=== PATIENT | female | born 1965 | race Caucasian/White ===

== ENCOUNTER 2017-02-18 00:41 | Inpatient (IN) | payer OTHER, MEDICARE ==
[2017-02-18] VITALS (12 sets, daily range): BP systolic 130–203; BP diastolic 67–112; PULSE 70–106; RESP 18–26; TEMP 97.8–99.2; O2SAT 93–99
[~2017-02-18] VITALS: Ht 157.5 cm; Wt 84.3 kg
[~2017-02-18 00:41] MED LIST: 1-ME1LIQ PO; LISI10TA PO; OMPR20CCR PO; PERM5CRE TOP; STRO3TAB PO
[2017-02-18] MEDS ORDERED: LISI-515 PO ×2 (01:02)
[2017-02-18] MEDS ORDERED: AMLO10TA2 PO (01:04)
[2017-02-18] MEDS ORDERED: PRIL20TA2 (01:05)
[2017-02-18] MEDS ORDERED: PRED20 PO (01:06)
[2017-02-18] MEDS ORDERED: ALBUAER3 INH (01:07)
[2017-02-18] MEDS ORDERED: SODIUM CHLORIDE 0.9% FLUSH 10 ML FLUSH IVF PRN (01:15)
[2017-02-18] MEDS ORDERED: methylPREDNISolone SOD SUCC 125 MG/2 ML VIAL IV PUSH ONE (01:15)
--- NOTE | 2017-02-18 01:15 | PD ---
HPI Chief Complaint: Respiratory Symptoms Time Seen by Provider: 00:59 Travel History International Travel<30 days: No Contact w/Intl Traveler<30days: No Traveled to known affect area: No History of Present Illness HPI The patient is a 51-year-old female who presents to the emergency department for shortness of breath. The patient states her symptoms started several weeks ago when she developed postnasal drip and facial congestion. The patient was diagnosed with a sinus infection and placed on prednisone and an antibiotic where she took 2 pills the first day and then one pill for the next 4 days. The patient states her symptoms improved. She then flew to [place], which she return and she developed shortness of breath and cough. The patient describes her cough is dry and nonproductive. She does complain of shortness of breath that is worse with exertion as well as mild chest tightness and wheezing. The patient saw her primary physician once again several days ago was placed on a steroid pack and another antibiotic as well as an inhaler. The patient also received a breathing treatment in the physician's office. However , patient states her symptoms are progressing and the antibiotic, steroids, and inhaler are not improving her symptoms. She does have a history tobacco use, last cigarette was several hours prior to arrival. However, she does state she has been smoking less secondary to her current symptoms. She is unsure if she has a history of COPD, denies any history of pulmonary embolism or DVT. She denies any history of [place] or congestive heart failure. Symptoms are moderate, there are no current alleviating or exacerbating factors. PFSH Past Medical History Blood Disorders: Yes (HEP C) Anxiety: Yes Heart Rhythm Problems: No Cancer: Yes (CERVICAL) Cardiovascular Problems: Yes High Cholesterol: No Chemotherapy: No Chest Pain: No Congestive Heart Failure: No Cirrhosis: Yes COPD: Yes Diabetes: No Diminished Hearing: No Endocrine: No Gastrointestinal Disorders: Yes GERD: Yes Glaucoma: No Genitourinary: Yes (KIDNEY STONES) Hepatitis: Yes (HEP C) Hiatal Hernia: No Hypertension: Yes Immune Disorder: No Kidney Stones: Yes Medical other: Yes (HX ESOPHAGEAL STRICTURE) Musculoskeletal: No Neurologic: No Reproductive: No Respiratory: Yes (COPD) Myocardial Infarction: No Radiation Therapy: No Thyroid Disease: No Ulcer: No Tetanus Vaccination: < 5 Years Influenza Vaccination: No ?: Not Menopausal: Yes : 3 Para: 3 Past Surgical History Abdominal Surgery: Yes (APPENDECTOMY AGE 14) AICD: No Appendectomy: Yes (AGE 14) Arteriovenous Shunt: No Cardiac Surgery: No Cholecystectomy: No Ear Surgery: No Endocrine Surgery: No Eye Surgery: No Genitourinary Surgery: No Gynecologic Surgery: Yes (HYSTERECTOMY (AGE 23 )) Hysterectomy: Yes Insulin Pump: No Joint Replacement: No Neurologic Surgery: No Oral Surgery: Yes (TONSILS SURGERY) Pacemaker: No Thoracic Surgery: Yes (BREAST) Tonsillectomy: Yes Other Surgery: Yes ( LEFT LUMPECTOMY CYST 2007;LIVER BIOPSY;COLONOSCOPY WITH POYLP REMOVAL) Social History Alcohol Use: No Tobacco Use: Yes (1-2 CIGS DAILY) Substance Use: No (HISTORY HEROIN ABUSE; RECOVERING FOR 15 YEARS) Allergies-Medications (Allergen,Severity, Reaction): Coded Allergies: alprazolam (Unverified Allergy, Severe, PT STATES RECOVERING ADDICT, ) azithromycin (Unverified Allergy, Severe, Hypertension,Rash, 10/13/16) clonazepam (Unverified Allergy, Severe, PT STATES RECOVERING ADDICT, ) clorazepate dipotassium (Unverified Allergy, Severe, PT STATES RECOVERING ADDICT, 10/13/16) diazepam (Unverified Allergy, Severe, PT STATES RECOVERING ADDICT, 10/13/16 ) lorazepam (Unverified Allergy, Severe, PT STATES RECOVERING ADDICT, ) midazolam (Unverified Allergy, Severe, PT STATES RECOVERING ADDICT, ) oxazepam (Unverified Allergy, Severe, PT STATES RECOVERING ADDICT, 10/13/16 ) temazepam (Unverified Allergy, Severe, PT STATES RECOVERING ADDICT, ) Uncoded Allergies: NARCOTIC (Allergy, Intermediate, PT STATES 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, 06/01/11 ) Reported Meds & Prescriptions Reported Meds & Active Scripts Active Reported Proair Hfa 8.5 GM Inh (Albuterol Sulfate) 90 Mcg/Act Aer 2 Puff INH Q4-6H PRN 108 mcg/actuation Prednisone 20 Mg Tab 20 Mg PO DIRECTED 7 Days Take 60 MG daily x 4 days, then 40 MG x 4 days, then 20 MG daily x 4 days. Prilosec (Omeprazole Magnesium) 20 Mg Tab Amlodipine (Amlodipine Besylate) 10 Mg Tab 10 Mg PO DAILY Lisinopril 20 Mg Tab 20 Mg PO BID Review of Systems Except as stated in HPI: all other systems reviewed are Neg General / Constitutional: No: Fever HENT: Positive: Congestion, No: Lightheadedness Cardiovascular: Positive: Dyspnea on exertion, No: Chest Pain or Discomfort Respiratory: Positive: Cough, Shortness of Breath, Wheezing Gastrointestinal: Positive: Diarrhea (occasionally with coughing), No: Nausea, Vomiting, Abdominal Pain Genitourinary: No: Dysuria Musculoskeletal: No: Edema Physical Exam Narrative GENERAL: Awake, alert, pleasant 51-year-old female appears her stated age and appears be slightly anxious and mildly short of breath. SKIN: Focused skin assessment warm/dry. HEAD: Atraumatic. Normocephalic. EYES: Pupils equal and round. No scleral icterus. No injection or drainage. ENT: No nasal bleeding or discharge. Mucous membranes pink and moist. NECK: Trachea midline. No JVD. CARDIOVASCULAR: Regular rate and rhythm. No murmur appreciated. Heart rate in the 90s. RESPIRATORY: No accessory muscle use. Type breath sounds with prolonged expiratory phase and scattered wheezes. GASTROINTESTINAL: Abdomen soft, non-tender, nondistended. MUSCULOSKELETAL: No obvious deformities. No clubbing. No cyanosis. No edema. NEUROLOGICAL: Awake and alert. No obvious cranial nerve deficits. Motor grossly within normal limits. Normal speech. PSYCHIATRIC: Appropriate mood and affect; insight and judgment normal. Data Data Last Documented VS Vital Signs Date Time Temp Pulse Resp B/P (MAP) Pulse Ox O2 Delivery O2 Flow Rate FiO2 02/18/17 01:27 92 22 174/67 (102) 98 Nasal Cannula 2.00 02/18/17 00:45 99.2 Orders Orders Complete Blood Count With Diff (02/18/17 01:10) Comprehensive Metabolic Panel (02/18/17 01:10) B-Type Natriuretic Peptide (02/18/17 01:10) Act Partial Throm Time (Ptt) (02/18/17 01:10) Prothrombin Time / Inr (Pt) (02/18/17 01:10) Magnesium (Mg) (02/18/17 01:10) Ckmb (Isoenzyme) Profile (02/18/17 01:10) Troponin I (02/18/17 01:10) Iv Access Insert/Monitor (02/18/17 01:10) Electrocardiogram (02/18/17 01:10) Ecg Monitoring (02/18/17 01:10) Oximetry (02/18/17 01:10) Oxygen Administration (02/18/17 01:10) Chest, Single Ap (02/18/17 01:10) Ct Pulmonary Angiogram (02/18/17 01:10) Sodium Chloride 0.9% Flush (Ns Flush) (02/18/17 01:15) Methylprednisolone So Succ Inj (Solumedr (02/18/17 01:15) Albuterol-Ipratropium Neb (Duoneb Neb) (02/18/17 01:15) Hydroxyzine Pamoate (Vistaril) (02/18/17 02:00) CKMB (02/18/17 01:20) CKMB% (02/18/17 01:20) Iohexol 350 Inj (Omnipaque 350 Inj) (02/18/17 02:23) Levofloxacin 500 Mg Premix Inj (Levaquin (02/18/17 03:30) Admit Order (Ed Use Only) (02/18/17 03:32) Labs Laboratory Tests Test 02/18/17 01:20 White Blood Count 3.9 TH/MM3 Red Blood Count 4.98 MIL/MM3 Hemoglobin 14.0 GM/DL Hematocrit 42.0 % Mean Corpuscular Volume 84.2 FL Mean Corpuscular Hemoglobin 28.1 PG Mean Corpuscular Hemoglobin Concent 33.4 % Red Cell Distribution Width 14.5 % Platelet Count 74 TH/MM3 Mean Platelet Volume 8.1 FL Neutrophils (%) (Auto) 63.2 % Lymphocytes (%) (Auto) 30.6 % Monocytes (%) (Auto) 5.8 % Eosinophils (%) (Auto) 0.2 % Basophils (%) (Auto) 0.2 % Neutrophils # (Auto) 2.5 TH/MM3 Lymphocytes # (Auto) 1.2 TH/MM3 Monocytes # (Auto) 0.2 TH/MM3 Eosinophils # (Auto) 0.0 TH/MM3 Basophils # (Auto) 0.0 TH/MM3 CBC Comment AUTO DIFF Differential Comment AUTO DIFF CONFIRMED Platelet Estimate NORMAL Platelet Morphology Comment NORMAL Red Cell Morphology Comment NORMAL Prothrombin Time 10.5 SEC Prothromb Time International Ratio 1.0 RATIO Activated Partial Thromboplast Time 24.1 SEC Blood Urea Nitrogen 16 MG/DL Creatinine 0.66 MG/DL Random Glucose 116 MG/DL Total Protein 8.1 GM/DL Albumin 4.1 GM/DL Calcium Level 8.7 MG/DL Magnesium Level 2.0 MG/DL Alkaline Phosphatase 74 U/L Aspartate Amino Transf (AST/SGOT) 11 U/L Alanine Aminotransferase (ALT/SGPT) 27 U/L Total Bilirubin 0.3 MG/DL Sodium Level 141 MEQ/L Potassium Level 3.8 MEQ/L Chloride Level 107 MEQ/L Carbon Dioxide Level 28.1 MEQ/L Anion Gap 6 MEQ/L Estimat Glomerular Filtration Rate 94 ML/MIN Total Creatine Kinase 101 U/L Creatine Kinase MB 3.6 NG/ML Troponin I LESS THAN 0.02 NG/ML B-Type Natriuretic Peptide 25 PG/ML MDM Medical Decision Making Medical Screen Exam Complete: Yes Emergency Medical Condition: Yes Medical Record Reviewed: Yes Interpretation(s) EKG reveals sinus rhythm with sinus arrhythmia. No ischemic changes noted. Laboratory Tests Test 02/18/17 01:20 White Blood Count 3.9 TH/MM3 Red Blood Count 4.98 MIL/MM3 Hemoglobin 14.0 GM/DL Hematocrit 42.0 % Mean Corpuscular Volume 84.2 FL Mean Corpuscular Hemoglobin 28.1 PG Mean Corpuscular Hemoglobin Concent 33.4 % Red Cell Distribution Width 14.5 % Platelet Count 74 TH/MM3 Mean Platelet Volume 8.1 FL Neutrophils (%) (Auto) 63.2 % Lymphocytes (%) (Auto) 30.6 % Monocytes (%) (Auto) 5.8 % Eosinophils (%) (Auto) 0.2 % Basophils (%) (Auto) 0.2 % Neutrophils # (Auto) 2.5 TH/MM3 Lymphocytes # (Auto) 1.2 TH/MM3 Monocytes # (Auto) 0.2 TH/MM3 Eosinophils # (Auto) 0.0 TH/MM3 Basophils # (Auto) 0.0 TH/MM3 CBC Comment AUTO DIFF Differential Comment AUTO DIFF CONFIRMED Platelet Estimate NORMAL Platelet Morphology Comment NORMAL Red Cell Morphology Comment NORMAL Prothrombin Time 10.5 SEC Prothromb Time International Ratio 1.0 RATIO Activated Partial Thromboplast Time 24.1 SEC Blood Urea Nitrogen 16 MG/DL Creatinine 0.66 MG/DL Random Glucose 116 MG/DL Total Protein 8.1 GM/DL Albumin 4.1 GM/DL Calcium Level 8.7 MG/DL Magnesium Level 2.0 MG/DL Alkaline Phosphatase 74 U/L Aspartate Amino Transf (AST/SGOT) 11 U/L Alanine Aminotransferase (ALT/SGPT) 27 U/L Total Bilirubin 0.3 MG/DL Sodium Level 141 MEQ/L Potassium Level 3.8 MEQ/L Chloride Level 107 MEQ/L Carbon Dioxide Level 28.1 MEQ/L Anion Gap 6 MEQ/L Estimat Glomerular Filtration Rate 94 ML/MIN Total Creatine Kinase 101 U/L Creatine Kinase MB 3.6 NG/ML Troponin I LESS THAN 0.02 NG/ML B-Type Natriuretic Peptide 25 PG/ML CT pulmonary angiogram reveals patchy areas of consolidation or atelectasis in the left upper lobe and right lower lobe. No pulmonary embolism. Differential Diagnosis Differential diagnosis includes COPD exacerbation, bronchitis, pneumonia, congestive heart failure, cardiomyopathy, pleural effusion, URI, pulmonary embolism. Narrative Course IV was established, labs are drawn and sent, and the patient was placed on cardiac telemetry monitoring and continuous pulse oximetry monitoring. Chest x- ray was obtained. The patient was administered Solu-Medrol 125 mg intravenously and [address] pulmonary angiogram was ordered to rule out PE was recent travel and wheezing that is not responding to steroids and albuterol inhaler. Troponin was less than 0.02. BNP was 25. Chest x-ray was clear. The patient requested Vistaril for her anxiety, has a history of allergies to benzodiazepines, therefore, was administered Vistaril 50 mg orally. The patient's CT pulmonary angiogram reveals patchy areas of consolidation or atelectasis in the left upper lobe and right lower lobe. No pulmonary embolus. The patient was reevaluated at 3:20 AM. The patient feels slightly improved, however, still short of breath. The patient appears to have bronchitis/COPD exacerbation with underlying pneumonia and has failed outpatient therapy with steroids, albuterol inhaler, and antibiotics. 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 The patient will be admitted. The on- call medical team was paged for admission. Physician Communication Physician Communication The on-call medical team was paged for admission. I discussed the patient with Dr. Crowder who agrees with admission. Diagnosis Primary Impression: COPD exacerbation Additional Impression: Pneumonia Qualified Codes: J18.9 - Pneumonia, unspecified organism Admitting Information Admitting Physician Requests: Admit Condition: Stable Nicola Melo MD Feb 18, 2017 01:15
[2017-02-18] MEDS: RESP: ALBUTEROL 2.5 MG/IPRATROPIUM 0.5 MG NEB (SCH) INH ×2 (01:18→19:35)
[2017-02-18 01:32] LABS: AUTOMATED NEUTROPHIL # 2.5 TH/MM3 (1.8-7.7); BASOPHIL % 0.2 % (0.0-2.0); EOSINOPHIL % 0.2 % (0.0-4.0); LYMPH % 30.6 % (9.0-44.0); LYMPHOCYTE # 1.2 TH/MM3 (1.0-4.8); MEAN CELL VOLUME 84.2 FL (80.0-100.0); MEAN CORPUSCULAR HEMOGLOBIN 28.1 PG (27.0-34.0); MEAN CORPUSCULAR HGB CONC 33.4 % (32.0-36.0); MONO % 5.8 % (0.0-8.0); NEUT % 63.2 % (16.0-70.0); PLATELET COUNT 74 TH/MM3 (150-450); RED BLOOD COUNT 4.98 MIL/MM3 (4.00-5.30); RED CELL DISTRIBUTION WIDTH 14.5 % (11.6-17.2); WHITE BLOOD COUNT 3.9 TH/MM3 (4.0-11.0)
[2017-02-18 01:34] LABS: HEMO FLAGS AUTO DIFF
[2017-02-18 01:43] LABS: APTT (PATIENT) 24.1 SEC (24.3-30.1); PROTHROMBIN TIME - PATIENT 10.5 SEC (9.8-11.6)
[2017-02-18 01:54] LABS: ALT (GPT) 27 U/L (10-53); ANION GAP 6 MEQ/L (5-15); AST (GOT) 11 U/L (15-37); BICARBONATE 28.1 MEQ/L (21.0-32.0); BLOOD UREA NITROGEN 16 MG/DL (7-18); CHLORIDE 107 MEQ/L (98-107); GLOMERULAR FILTRATION RATE 94 ML/MIN (>89); POTASSIUM 3.8 MEQ/L (3.5-5.1); SODIUM (NA) 141 MEQ/L (136-145)
[2017-02-18 01:59] LABS: ALKALINE PHOSPHATASE 74 U/L (45-117); CREATINE KINASE 101 U/L (26-192); TOTAL BILIRUBIN ADULT 0.3 MG/DL (0.2-1.0)
[2017-02-18 02:00] LABS: PLATELET ESTIMATE SMEAR NORMAL (NORMAL)
[2017-02-18 02:01] LABS: PLATELET MORPHOLOGY NORMAL (NORMAL); SCAN/DIFF AUTO DIFF CONFIRMED
--- NOTE | 2017-02-18 02:01 | RADRPT ---
EXAM DATE/TIME: 02/18/2017 01:38 [facility] COMPARISON: CHEST SINGLE AP, January 20, 2010, 20:00. INDICATIONS : Shortness of breath. MEDICAL HISTORY : Chronic obstructive pulmonary disease. Hypertension SURGICAL HISTORY : None. ENCOUNTER: Initial ACUITY: 1 day PAIN SCORE: 0/10 LOCATION: Bilateral chest FINDINGS: A single view of the chest demonstrates the lungs to be symmetrically aerated without evidence of mas s, infiltrate or effusion. The cardiomediastinal contours are unremarkable. There are old healed rig ht rib fractures. CONCLUSION: No acute disease. Luis Vogel MD on February 18, 2017 at 1:59 Board Certified Radiologist. This report was verified electronically.
[2017-02-18 02:11] LABS: CKMB 3.6 NG/ML (0.5-3.6)
[2017-02-18] MEDS ORDERED: IOHEXOL 350 MG/ML 10 ML VIAL (for RAD DIAG) IVCONTRAST ONE (02:23)
--- NOTE | 2017-02-18 03:14 | RADRPT ---
EXAM DATE/TIME: 02/18/2017 02:09 [facility] COMPARISON: No previous studies available for comparison. INDICATIONS : Shortness of breath with cough. IV CONTRAST: 75 cc Omnipaque 350 (iohexol) IV RADIATION DOSE: 15.90 CTDIvol (mGy) MEDICAL HISTORY : Chronic obstructive pulmonary disease. Hepatitis C. Cervical cancer. SURGICAL HISTORY : Hysterectomy. ENCOUNTER: Initial ACUITY: 3 days PAIN SCALE: 0/10 LOCATION: chest TECHNIQUE: Volumetric scanning of the chest was performed using a pulmonary embolism protocol MIP images were re constructed. Using automated exposure control and adjustment of the mA and/or kV according to patien t size, radiation dose was kept as low as reasonably achievable to obtain optimal diagnostic quality images. DICOM format image data is available electronically for review and comparison. Follow-up recommendations for detected pulmonary nodules are based at a minimum on nodule size and pa tient risk factors according to Fleischner Society Guidelines. FINDINGS: PULMONARY ARTERIES: No filling defects are seen in the pulmonary arteries through the segmental level. LUNGS: There is patchy consolidation or atelectasis in the anterior medial left upper lobe and several small areas in the posterior medial right lower lobe. PLEURAE: There is no pleural thickening or pleural effusion. MEDIASTINUM: There is good visualization of the great vessels of the middle mediastinum. No evidence of mediastin al or hilar adenopathy/mass. Coronary artery calcifications are present. MUSCULOSKELETAL: Within normal limits for patient age. MISCELLANEOUS: The visualized upper abdominal organs demonstrate no acute abnormality. CONCLUSION: 1. Patchy areas of consolidation or atelectasis in the left upper lobe and right lower lobe. 2. No pulmonary embolus. Luis Vogel MD on February 18, 2017 at 3:11 Board Certified Radiologist. This report was verified electronically.
[2017-02-18] MEDS ORDERED: LEVOFLOXACIN 500 MG PREMIX INJ 100 ML IV ONE (03:30)
[2017-02-18] MEDS ORDERED: RESP: ALBUTEROL 2.5 MG/IPRATROPIUM 0.5 MG NEB (PRN) INH (03:45)
[2017-02-18] MEDS ORDERED: SODIUM CHLORIDE 0.9% FLUSH 10 ML FLUSH IV FLUSH PRN (03:45)
[2017-02-18] MEDS ORDERED: RESP: ALBUTEROL 2.5 MG/IPRATROPIUM 0.5 MG NEB (SCH) INH (04:00)
[2017-02-18] MEDS: ENOXAPARIN SODIUM 40 MG/0.4 ML SYRINGE SQ SCH (04:32)
[2017-02-18] MEDS: PANTOPRAZOLE SOD 40 MG DELAYED RELEASE TAB PO SCH (08:05)
[2017-02-18] MEDS: methylPREDNISolone SOD SUCC 125 MG/2 ML VIAL IV PUSH SCH ×3 (08:05→22:39)
[2017-02-18] MEDS: LISINOPRIL 20 MG TAB PO SCH ×2 (08:05→22:37)
[2017-02-18] MEDS: SODIUM CHLORIDE 0.9% FLUSH 10 ML FLUSH IV FLUSH SCH ×2 (08:06→22:38)
--- NOTE | 2017-02-18 10:33 | HHI.HP ---
[facility] Primary Care Physician Maryan Acuna MD Admission Diagnosis bilateral pneumonia, COPD exacerbation fell outpatient therapy Diagnoses: Chief Complaint: Shortness of breath Travel History International Travel<30 Days: No Contact w/Intl Traveler <30 Da: No Traveled to Known Affected Are: No History of Present Illness The patient is a 51-year-old female with past medical history of likely undiagnosed COPD who is presenting to the hospital with shortness of breath. The patient states that he about 2 weeks ago she started to develop a head cold. She went to her primary who prescribed her Z-Eric and prednisone. She completed the Z-Eric but discontinued the prednisone after a couple doses secondary to side effects. She said she was using her pro-air. She started to feel a little bit better and she went to [place] for a vacation. She tolerated the trip well but she started to get sick again upon her return. She complained of chest congestion. She went back to her primary care doctor who prescribed more prednisone and antibiotics. The patient requested a nebulizer which was provided for her. The patient says she has had a low-grade fever. She says that her [id number] suddenly and she went to her last night and people told her that she was burning up. The patient has been taking Tylenol regularly recently. She endorses a dry cough. She has not been sleeping well. She has been tolerating a diet. She continues to smoke cigarettes. Review of Systems Except as stated in HPI: all other systems reviewed are Neg Past Family Social History Past Medical History HCV s/p treatment Leukopenia Thrombocytopenia Undiagnosed COPD Diverticulitis Past Surgical History Appendectomy Tonsillectomy Allergies: Coded Allergies: alprazolam (Unverified Allergy, Severe, PT STATES RECOVERING ADDICT, ) azithromycin (Unverified Allergy, Severe, Hypertension,Rash, 10/13/16) clonazepam (Unverified Allergy, Severe, PT STATES RECOVERING ADDICT, ) clorazepate dipotassium (Unverified Allergy, Severe, PT STATES RECOVERING ADDICT, 10/13/16) diazepam (Unverified Allergy, Severe, PT STATES RECOVERING ADDICT, 10/13/16 ) lorazepam (Unverified Allergy, Severe, PT STATES RECOVERING ADDICT, ) midazolam (Unverified Allergy, Severe, PT STATES RECOVERING ADDICT, ) oxazepam (Unverified Allergy, Severe, PT STATES RECOVERING ADDICT, 10/13/16 ) temazepam (Unverified Allergy, Severe, PT STATES RECOVERING ADDICT, ) Uncoded Allergies: NARCOTIC (Allergy, Intermediate, PT STATES 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, 06/01/11 ) Active Ordered Medications Current Medications Medications (Trade) Dose Ordered Sig/Cayden Route Start Time Stop Time Status Last Admin (NS Flush) 2 ml BID IV FLUSH 02/18/17 09:00 02/18/17 08:06 (NS Flush) 2 ml UNSCH PRN IV FLUSH 02/18/17 03:45 (Duoneb Neb) 1 ampule Q4HR NEB PRN INH 02/18/17 03:45 (Duoneb Neb) 1 ampule Q6HR NEB INH 02/18/17 04:00 (SoluMEDROL INJ) 60 mg Q6H IV PUSH 02/18/17 08:00 02/18/17 08:05 Levofloxacin/ Dextrose 150 ml @ 100 mls/hr Q24H IV 02/19/17 04:00 (Lovenox Inj) 40 mg Q24H SQ 02/18/17 03:45 02/18/17 04:32 (Norvasc) 10 mg DAILY PO 02/18/17 09:00 02/18/17 08:05 (Prinivil) 20 mg BID PO 02/18/17 09:00 02/18/17 08:05 (Protonix) 40 mg DAILY PO 02/18/17 09:00 02/18/17 08:05 Family History Liver cancer COPD Addiction Social History The pt smokes 3/4 of a pack per week. 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 Physical Exam Vital Signs Vital Signs Date Time Temp Pulse Resp B/P (MAP) Pulse Ox O2 Delivery O2 Flow Rate FiO2 02/18/17 07:46 99.0 83 18 147/70 (95) 97 Nasal Cannula 2.00 02/18/17 05:00 77 20 130/78 (95) 97 Nasal Cannula 2.00 02/18/17 03:43 80 26 98 Nasal Cannula 2.00 02/18/17 03:36 75 18 147/67 (93) 99 Nasal Cannula 2.00 02/18/17 01:27 92 22 174/67 (102) 98 Nasal Cannula 2.00 02/18/17 01:22 97 Nasal Cannula 2.00 02/18/17 01:22 97 Nasal Cannula 2.00 02/18/17 01:22 96 Nasal Cannula 2.00 02/18/17 01:01 95 26 203/112 (142) 93 Room Air 02/18/17 00:45 99.2 104 22 201/91 (127) 95 Room Air Physical Exam GENERAL: This is a well-nourished, well-developed patient, in no apparent distress. SKIN: No rashes, ecchymoses or lesions. Cool and dry. HEAD: Atraumatic. Normocephalic. No temporal or scalp tenderness. EYES: Pupils equal round and reactive. Extraocular motions intact. No scleral icterus. No injection or drainage. ENT: Nose without bleeding, purulent drainage or septal hematoma. Throat without erythema, tonsillar hypertrophy or exudate. Uvula midline. Airway patent. NECK: Trachea midline. No JVD or lymphadenopathy. Supple, nontender, no meningeal signs. CARDIOVASCULAR: Regular rate and rhythm without murmurs, gallops, or rubs. RESPIRATORY: Diffuse wheezing appreciated. GASTROINTESTINAL: Abdomen soft, non-tender, nondistended. No hepato-splenomegaly , or palpable masses. No guarding. MUSCULOSKELETAL: Extremities without clubbing, cyanosis, or edema. No joint tenderness, effusion, or edema noted. No calf tenderness. Negative Homans sign bilaterally. NEUROLOGICAL: Awake and alert. Cranial nerves II through XII intact. Motor and sensory grossly within normal limits. Five out of 5 muscle strength in all muscle groups. Normal speech. PSYCH: Mood and affect appropriate. Laboratory Laboratory Tests Test 02/18/17 01:20 White Blood Count 3.9 Red Blood Count 4.98 Hemoglobin 14.0 Hematocrit 42.0 Mean Corpuscular Volume 84.2 Mean Corpuscular Hemoglobin 28.1 Mean Corpuscular Hemoglobin Concent 33.4 Red Cell Distribution Width 14.5 Platelet Count 74 Mean Platelet Volume 8.1 Neutrophils (%) (Auto) 63.2 Lymphocytes (%) (Auto) 30.6 Monocytes (%) (Auto) 5.8 Eosinophils (%) (Auto) 0.2 Basophils (%) (Auto) 0.2 Neutrophils # (Auto) 2.5 Lymphocytes # (Auto) 1.2 Monocytes # (Auto) 0.2 Eosinophils # (Auto) 0.0 Basophils # (Auto) 0.0 CBC Comment AUTO DIFF Differential Comment AUTO DIFF CONFIRMED Platelet Estimate NORMAL Platelet Morphology Comment NORMAL Red Cell Morphology Comment NORMAL Prothrombin Time 10.5 Prothromb Time International Ratio 1.0 Activated Partial Thromboplast Time 24.1 Blood Urea Nitrogen 16 Creatinine 0.66 Random Glucose 116 Total Protein 8.1 Albumin 4.1 Calcium Level 8.7 Magnesium Level 2.0 Alkaline Phosphatase 74 Aspartate Amino Transf (AST/SGOT) 11 Alanine Aminotransferase (ALT/SGPT) 27 Total Bilirubin 0.3 Sodium Level 141 Potassium Level 3.8 Chloride Level 107 Carbon Dioxide Level 28.1 Anion Gap 6 Estimat Glomerular Filtration Rate 94 Total Creatine Kinase 101 Creatine Kinase MB 3.6 Troponin I LESS THAN 0.02 B-Type Natriuretic Peptide 25 Result Diagram: 02/18/1711902/18/17119 Imaging Last Impressions Chest X-Ray 02/18/17109 Signed Impressions: Service Date/Time: January 01:38 - CONCLUSION: No acute disease. Luis Vogel MD CT Angiography 02/18/17109 Signed Impressions: Service Date/Time: January 02:09 - CONCLUSION: 1. Patchy areas of consolidation or atelectasis in the left upper lobe and right lower lobe. 2. No pulmonary embolus. Luis Vogel MD Caprini VTE Risk Assessment Caprini VTE Risk Assessment: Mod/High Risk (score >= 2) Caprini Risk Assessment Model Point Value = 1 Point Value = 2 Point Value = 3 Point Value = 5 Age 41-60 Minor surgery BMI > 25 kg/m2 Swollen legs Varicose veins or History of unexplained or recurrent spontaneous Oral contraceptives or hormone replacement Sepsis (< 1 month) Serious lung disease, including pneumonia (< 1 month) Abnormal pulmonary function Acute myocardial infarction Congestive heart failure (< 1 month) History of inflammatory bowel disease Medical patient at bed rest Age 61-74 Arthroscopic surgery Major open surgery (> 45 min) Laparoscopic surgery (> 45 min) Malignancy Confined to bed (> 72 hours) Immobilizing plaster cast Central venous access Age >= 75 History of VTE Family history of VTE Factor V Leiden Prothrombin [id number] Lupus anticoagulant Anticardiolipin antibodies Elevated serum homocysteine Heparin-induced thrombocytopenia Other congenital or acquired thrombophilia Stroke (< 1 month) Elective arthroplasty Hip, pelvis, or leg fracture Acute spinal cord injury (< 1 month) Prophylaxis Regimen Total Risk Factor Score Risk Level Prophylaxis Regimen 0-1 Low Early ambulation 2 Moderate Order ONE of the following: *Sequential Compression Device (SCD) *Heparin 5000 units SQ BID 3-4 Higher Order ONE of the following medications: *Heparin 5000 units SQ TID *Enoxaparin/Lovenox 40 mg SQ daily (WT < 150 kg, CrCl > 30 mL/min) *Enoxaparin/Lovenox 30 mg SQ daily (WT < 150 kg, CrCl > 10-29 mL/min) *Enoxaparin/Lovenox 30 mg SQ BID (WT < 150 kg, CrCl > 30 mL/min) AND/OR *Sequential Compression Device (SCD) 5 or more Highest Order ONE of the following medications: *Heparin 5000 units SQ TID (Preferred with Epidurals) *Enoxaparin/Lovenox 40 mg SQ daily (WT < 150 kg, CrCl > 30 mL/min) *Enoxaparin/Lovenox 30 mg SQ daily (WT < 150 kg, CrCl > 10-29 mL/min) *Enoxaparin/Lovenox 30 mg SQ BID (WT < 150 kg, CrCl > 30 mL/min) AND *Sequential Compression Device (SCD) Assessment and Plan Assessment and Plan Acute COPD exacerbation/ PNA The pt likely has underlying COPD. The pt has had multiple rounds of antibiotics and steroids as an outpt. CT showed: Patchy areas of consolidation or atelectasis in the left upper lobe and right lower lobe; No pulmonary embolus. - continue IV Levaquin. - standing and as needed nebs. - incentive spirometry. - smoking cessation instruction. - encourage ambulation. Leukopenia/ Thrombocytopenia S/t splenic sequestration from hepatitis C, which has been treated. Stable. - follow CBC. Anxiety/ Depression The pt has experienced multiple losses in her family over the past eight months. Mood is stable at this time. - outpt follow-up. HTN Blood pressure was markedly elevated on admission, now improved. Likely exacerbated by respiratory distress. - resume home meds. - clonidine as needed. PPx: SCDs Code Status Full Discussed Condition With Pt, nurse Physician Certification 2 Midnight Certification Type: Admission for Inpatient Services Order for Inpatient Services The services are ordered in accordance with Medicare regulations or non- Medicare payer requirements, as applicable. In the case of services not specified as inpatient-only, they are appropriately provided as inpatient services in accordance with the 2-midnight benchmark. Estimated LOS (days): 2 days is the estimated time the patient will need to remain in the hospital, assuming treatment plan goals are met and no additional complications. Post-Hospital Plan: Home Marcelo Chisholm DO Feb 18, 2017 10:33
[2017-02-18] MEDS ORDERED: cloNIDine HCL 0.1 MG TAB PO PRN (11:00)
[2017-02-18] MEDS: RESP: ALBUTEROL 2.5 MG/IPRATROPIUM 0.5 MG NEB (PRN) INH (15:43)
--- NOTE | 2017-02-18 15:44 | EKG ---
Date Performed: 02/18/2017 Time Performed: 01:19:09 PTAGE: 51 years EKG: Sinus rhythm WITH SINUS ARRHYTHMIA NORMAL ECG PREVIOUS TRACING : 02/18/2017 01.18 Compared to prior tracing no significant change DOCTOR: Vaibhav Grace Interpretating Date/Time 02/18/2017 15:42:49
[2017-02-18] MEDS: guaiFENesin E.R. 600 MG TAB PO SCH (22:38)
[2017-02-19] VITALS: BP 130/60; PULSE 74; RESP 20; TEMP 98; O2SAT 98
[2017-02-19] MEDS: RESP: ALBUTEROL 2.5 MG/IPRATROPIUM 0.5 MG NEB (PRN) INH (02:20)
[2017-02-19] MEDS: methylPREDNISolone SOD SUCC 125 MG/2 ML VIAL IV PUSH SCH ×2 (02:56→08:49)
[2017-02-19] MEDS: ENOXAPARIN SODIUM 40 MG/0.4 ML SYRINGE SQ SCH (02:56)
[2017-02-19] MEDS ORDERED: LEVOFLOXACIN 750 MG PREMIX INJ 150 ML IV SCH (04:00)
[2017-02-19 06:20] LABS: AUTOMATED NEUTROPHIL # 2.3 TH/MM3 (1.8-7.7); BASOPHIL % 0.9 % (0.0-2.0); EOSINOPHIL % 0.1 % (0.0-4.0); HEMATOCRIT 39.1 % (35.0-46.0); LYMPH % 20.4 % (9.0-44.0); LYMPHOCYTE # 0.6 TH/MM3 (1.0-4.8); MEAN CELL VOLUME 83.8 FL (80.0-100.0); MEAN CORPUSCULAR HEMOGLOBIN 27.8 PG (27.0-34.0); MEAN CORPUSCULAR HGB CONC 33.2 % (32.0-36.0); MONO % 1.4 % (0.0-8.0); NEUT % 77.2 % (16.0-70.0); PLATELET COUNT 68 TH/MM3 (150-450); RED BLOOD COUNT 4.66 MIL/MM3 (4.00-5.30); RED CELL DISTRIBUTION WIDTH 13.3 % (11.6-17.2)
[2017-02-19 06:23] LABS: HEMO FLAGS AUTO DIFF
[2017-02-19 06:27] LABS: POTASSIUM 3.9 MEQ/L (3.5-5.1)
[2017-02-19 06:31] LABS: BICARBONATE 27.6 MEQ/L (21.0-32.0)
[2017-02-19 07:33] LABS: PLATELET ESTIMATE SMEAR LOW (NORMAL); PLATELET MORPHOLOGY NORMAL (NORMAL); SCAN/DIFF AUTO DIFF CONFIRMED
[2017-02-19 07:50] VITALS: O2SAT 95
[2017-02-19] MEDS: RESP: ALBUTEROL 2.5 MG/IPRATROPIUM 0.5 MG NEB (SCH) INH (07:50)
[2017-02-19 08:30] VITALS: BP 155/75; PULSE 92; RESP 20; TEMP 98.5; O2SAT 96
[2017-02-19] MEDS: guaiFENesin E.R. 600 MG TAB PO SCH (08:49)
[2017-02-19] MEDS: LISINOPRIL 20 MG TAB PO SCH (08:49)
[2017-02-19] MEDS: SODIUM CHLORIDE 0.9% FLUSH 10 ML FLUSH IV FLUSH SCH (08:49)
[2017-02-19] MEDS: PANTOPRAZOLE SOD 40 MG DELAYED RELEASE TAB PO SCH (08:49)
--- NOTE | 2017-02-19 09:44 | HHI.DCPOC ---
Discharge Care Plan Diagnosis: (1) COPD exacerbation (2) Pneumonia Goals to Promote Your Health * To prevent worsening of your condition and complications * To maintain your health at the optimal level Directions to Meet Your Goals Take your medications as prescribed Follow your dietary instruction Follow activity as directed Keep your appointments as scheduled Take your immunizations and boosters as scheduled If your symptoms worsen call your PCP, if no PCP go to Urgent Care Center or Emergency Room Smoking is Dangerous to Your Health. Avoid second hand smoke Call the 24-hour hour crisis hotline for domestic abuse at Lloyd Serrano Feb 19, 2017 09:44
[2017-02-19] MEDS ORDERED: BUDESONIDE-FORMOTEROL 160/4.5 MCG INHALER INH SCH (09:45)
[2017-02-19] MEDS ORDERED: guaiFENesin ER PO (09:48)
[2017-02-19] MEDS ORDERED: PRED10PA2 PO (09:48)
[2017-02-19] MEDS ORDERED: LEVO750T3 PO (09:48)
[2017-02-19] MEDS ORDERED: Budeson-Formot 160-4.5 Mcg Inh INH (09:48)
[2017-02-19] MEDS ORDERED: PNEUMOCOCCAL POLYVALENT INJ 25 MCG/0.5 ML SYR IM ONE (10:00)
[2017-02-19] MEDS ORDERED: INFLUENZA VIRUS VACCINE (QUADRIVALENT) 0.5 ML SYR IM ONE (10:00)
--- NOTE | 2017-02-19 12:14 | HHI.DS ---
Discharge Summary Admission Date Feb 18, 2017 at 03:34 Discharge Date: Feb 19, 2017 Admitting Diagnosis bilateral pneumonia, COPD exacerbation fell outpatient therapy (1) COPD exacerbation ICD Code: J44.1 - Chronic obstructive pulmonary disease with (acute) exacerbation Status: Acute (2) Pneumonia ICD Code: J18.9 - Pneumonia, unspecified organism Status: Acute Procedures None Brief History - From Admission The patient is a 51-year-old female with past medical history of likely undiagnosed COPD who is presenting to the hospital with shortness of breath. The patient states that he about 2 weeks ago she started to develop a head cold. She went to her primary who prescribed her Z-Eric and prednisone. She completed the Z-Eric but discontinued the prednisone after a couple doses secondary to side effects. She said she was using her pro-air. She started to feel a little bit better and she went to [place] for a vacation. She tolerated the trip well but she started to get sick again upon her return. She complained of chest congestion. She went back to her primary care doctor who prescribed more prednisone and antibiotics. The patient requested a nebulizer which was provided for her. The patient says she has had a low-grade fever. She says that her [id number]-ux-frf suddenly and she went to her last night and people told her that she was burning up. The patient has been taking Tylenol regularly recently. She endorses a dry cough. She has not been sleeping well. She has been tolerating a diet. She continues to smoke cigarettes. CBC/BMP: 02/19/17 0545 02/19/17 0545 Significant Findings Laboratory Tests Test 02/18/17 01:20 02/19/17 05:45 White Blood Count 3.9 TH/MM3 (4.0-11.0) 3.0 TH/MM3 (4.0-11.0) Platelet Count 74 TH/MM3 (150-450) 68 TH/MM3 (150-450) Activated Partial Thromboplast Time 24.1 SEC (24.3-30.1) Random Glucose 116 MG/DL (74-106) 218 MG/DL (74-106) Aspartate Amino Transf (AST/SGOT) 11 U/L (15-37) Troponin I LESS THAN 0.02 NG/ML Neutrophils (%) (Auto) 77.2 % (16.0-70.0) Lymphocytes # (Auto) 0.6 TH/MM3 (1.0-4.8) Platelet Estimate LOW (NORMAL) Blood Urea Nitrogen 19 MG/DL (7-18) Calcium Level 8.4 MG/DL (8.5-10.1) Imaging Last Impressions Chest X-Ray 02/18/17109 Signed Impressions: Service Date/Time: , February 18, 2017 01:38 - CONCLUSION: No acute disease. Luis Vogel MD CT Angiography 02/18/17109 Signed Impressions: Service Date/Time: , February 18, 2017 02:09 - CONCLUSION: 1. Patchy areas of consolidation or atelectasis in the left upper lobe and right lower lobe. 2. No pulmonary embolus. Luis Vogel MD Hospital Course 51-year-old female with history of chronic smoking, hypertension who presented to hospital because of shortness of breath and dyspnea. Patient had just returned from [place]. She started developing shortness of breath and cough. She describes it as a dry cough and is not been able to produce any phlegm. Patient indicates that she has undergone treatment with inhaler, nebulizers, and steroid pack without any significant improvement. Patient with primary medical doctor and was started on antibiotics. Patient not improve so she came to emergency department for evaluation. Patient had workup done which upon physical exam patient found to have significant wheezing and decreased air flow. Chest x-ray does show patchy areas of consolidation or atelectasis. Patient was admitted with IV antibiotics and IV Solu-Medrol. Upon seeing the patient this morning she states that she is doing much better. She has not required any oxygen supplementation, however she does feel more comfortable when she is wearing the oxygen. She has had good O2 saturations greater than 95% since admission. Patient is clinically stable this time. And is requesting to go home. I spent extensive time discussing patient's care, outpatient management, smoking cessation, outpatient follow-up. Patient does understand. Will plan discharge home in stable condition. Pt Condition on Discharge: Stable Discharge Disposition: Discharge Home Discharge Time: > 30 minutes Discharge Instructions DIET: Follow Instructions for: Heart Healthy Diet Activities you can perform: Regular-No Restrictions Activities to Avoid: Driving for 24 hrs Follow up Referrals: PCP Follow-up - 1 Week Pulmonology - 2 Weeks with Fabio Boyle MD New Medications: Levofloxacin (Levofloxacin) 750 Mg Tablet 750 MG PO DAILY for Infection, #10 TAB 0 Refills Prednisone (48) 10 mg tab Dose Pack (Prednisone (48) 10 mg tab Dose Pack) 10 Mg Dspk 10 MG PO DIRECTED for COPD, #1 DSPK 0 Refills [Budeson-Formot 160-4.5 Mcg Inh] () 60 PUFF AERO 2 PUFF INH Q12HR for COPD, #1 [guaiFENesin ER] () 600 MG TABCR 600 MG PO BID for Pneumonia, #20 Continued Medications: Albuterol 8.5 GM Inh (Proair Hfa 8.5 GM Inh) 90 Mcg/Act Aer 2 PUFF INH Q4-6H PRN for SHORTNESS OF BREATH, #1 INHALER 0 Refills 108 mcg/actuation Amlodipine (Amlodipine) 10 Mg Tab 10 MG PO DAILY for Blood Pressure Management, #30 TAB 0 Refills Lisinopril (Lisinopril) 20 Mg Tab 20 MG PO BID, #30 TAB 0 Refills Omeprazole Magnesium (Prilosec) 20 Mg Tab Discontinued Medications: Prednisone (Prednisone) 20 Mg Tab 20 MG PO DIRECTED for 7 Days, #24 TAB 0 Refills Take 60 MG daily x 4 days, then 40 MG x 4 days, then 20 MG daily x 4 days. Lloyd Serrano Feb 19, 2017 12:14
[2017-02-19 14:39] LABS: HEMOGLOBIN A1a 1.4 %; HEMOGLOBIN A1b 1.8 %; HEMOGLOBIN Ao 83.4 %; HEMOGLOBIN LA1C 2.8 %; HEMOGLOBIN P3 4.1 %
== END 2017-02-19 12:10 | disposition home or self-care (01) | DRG 190 ==
LOC: NEPE 00:41 → NEDA 03:34 → NEDH 09:38 → PH3B 13:45
PROVIDERS: ADMIT Hospitalist; ATTEND Hospitalist
DX: J44.1 Chronic obstructive pulmonary disease with (acute) exacerbation (principal); J18.9 Pneumonia, unspecified organism; D69.6 Thrombocytopenia, unspecified; J98.11 Atelectasis; J44.0 Chronic obstructive pulmonary disease with (acute) lower respiratory infection; D72.819 Decreased white blood cell count, unspecified; F41.9 Anxiety disorder, unspecified; F32.9 Major depressive disorder, single episode, unspecified; I10 Essential (primary) hypertension; F17.210 Nicotine dependence, cigarettes, uncomplicated; R06.03 Acute respiratory distress; Z23 Encounter for immunization; Z86.19 Personal history of other infectious and parasitic diseases
CPT/HCPCS: 71010; 71275; 80048; 80053; 82550; 82552; 83036; 83735; 83880; 84484; 85025; 85610; 85730; 87070; 87205; 87449; 87804; 90471; 90686; 90732; 93005; 94150; 94640; 94664; 96374; 96375; G0008; G0009; J1650; J1956; J2930; Q2038; Q9967

== ENCOUNTER 2017-05-20 07:40 | Emergency (ER) | payer OTHER ==
[~2017-05-20] VITALS: Ht 157.5 cm; Wt 86.0 kg
[~2017-05-20 07:40] MED LIST changes: -1-ME1LIQ PO; +ALBUAER3 INH; +AMLO10TA2 PO; +Budeson-Formot 160-4.5 Mcg Inh INH; +LEVO750T3 PO; +LISI-515 PO; -LISI10TA PO; -OMPR20CCR PO; -PERM5CRE TOP; +PRED10PA2 PO; +PRIL20TA2; -STRO3TAB PO; +guaiFENesin ER PO
[2017-05-20 07:47] VITALS: BP 220/110; PULSE 81; RESP 18; TEMP 98.2; O2SAT 97
[2017-05-20 07:55] VITALS: BP 220/110; PULSE 81; RESP 18; TEMP 98.2; O2SAT 97
[2017-05-20] MEDS ORDERED: KETOROLAC TROMETHAMINE 30 MG/ML (IVP) VIAL IVP ONE (08:15)
[2017-05-20] MEDS ORDERED: hydrALAZINE HCL 20 MG/ML VIAL IV PUSH ONE (08:15)
--- NOTE | 2017-05-20 08:15 | PD ---
HPI Chief Complaint: Abdominal Pain Time Seen by Provider: 08:01 Travel History International Travel<30 days: No Contact w/Intl Traveler<30days: No Traveled to known affect area: No History of Present Illness HPI 52yo F with PMH of HTN, diverticulitis and COPD here with c/o abdominal pain for a few days. Said it is localized in left lower abdomen and feels like her diverticulitis. Pt said she is starting to have nonbloody soft stool but not diarrhea yet. Denies any fever, chest pain, n/v, dysuria, hematuria, focal weakness or numbness. Pt had appendectomy, hysterectomy and tonsillectomy. Had history of Hep C but said it is now cure. Pt has been on a no carb diet and has not taken her blood pressure medication for 1 week. PFSH Past Medical History Blood Disorders: Yes (HEP C) Anxiety: Yes Heart Rhythm Problems: No Cancer: Yes (CERVICAL) Cardiovascular Problems: Yes High Cholesterol: No Chemotherapy: No Chest Pain: No Congestive Heart Failure: No Cirrhosis: Yes COPD: Yes Diabetes: No Diminished Hearing: No Endocrine: No Gastrointestinal Disorders: Yes GERD: Yes Glaucoma: No Genitourinary: Yes Hepatitis: Yes (HEP C) Hiatal Hernia: No Hypertension: Yes Immune Disorder: No Kidney Stones: Yes Medical other: Yes (HX ESOPHAGEAL STRICTURE) Musculoskeletal: No Neurologic: No Reproductive: No Respiratory: Yes Myocardial Infarction: No Radiation Therapy: No Thyroid Disease: No Ulcer: No Tetanus Vaccination: < 5 Years ?: Not Menopausal: Yes : 3 Para: 3 Past Surgical History Abdominal Surgery: Yes (APPENDECTOMY AGE 14) AICD: No Appendectomy: Yes (AGE 14) Arteriovenous Shunt: No Cardiac Surgery: No Cholecystectomy: No Ear Surgery: No Endocrine Surgery: No Eye Surgery: No Genitourinary Surgery: No Gynecologic Surgery: Yes (HYSTERECTOMY (AGE 23 )) Hysterectomy: Yes Insulin Pump: No Joint Replacement: No Neurologic Surgery: No Oral Surgery: Yes (TONSILECTOMY SURGERY) Pacemaker: No Thoracic Surgery: Yes Tonsillectomy: Yes Other Surgery: Yes ( LEFT LUMPECTOMY CYST 2007;LIVER BIOPSY;COLONOSCOPY WITH POYLP REMOVAL) Social History Alcohol Use: No Tobacco Use: Yes (1-2 CIGS DAILY) Substance Use: No (HISTORY HEROIN ABUSE; RECOVERING FOR 15 YEARS) Allergies-Medications (Allergen,Severity, Reaction): Coded Allergies: alprazolam (Unverified Allergy, Severe, PT STATES RECOVERING ADDICT, ) azithromycin (Unverified Allergy, Severe, Hypertension,Rash, 05/20/17) clonazepam (Unverified Allergy, Severe, PT STATES RECOVERING ADDICT, ) clorazepate dipotassium (Unverified Allergy, Severe, PT STATES RECOVERING ADDICT, 05/20/17) diazepam (Unverified Allergy, Severe, PT STATES RECOVERING ADDICT, 05/20/17 ) lorazepam (Unverified Allergy, Severe, PT STATES RECOVERING ADDICT, ) midazolam (Unverified Allergy, Severe, PT STATES RECOVERING ADDICT, ) oxazepam (Unverified Allergy, Severe, PT STATES RECOVERING ADDICT, 05/20/17 ) temazepam (Unverified Allergy, Severe, PT STATES RECOVERING ADDICT, ) Uncoded Allergies: NARCOTIC (Allergy, Intermediate, PT STATES 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, 06/01/11 ) Reported Meds & Prescriptions Reported Meds & Active Scripts Active [Budeson-Formot 160-4.5 Mcg Inh] 60 PUFF Aero 2 Puff INH Q12HR Reported Proair Hfa 8.5 GM Inh (Albuterol Sulfate) 90 Mcg/Act Aer 2 Puff INH Q4-6H PRN 108 mcg/actuation Prilosec (Omeprazole Magnesium) 20 Mg Tab Amlodipine (Amlodipine Besylate) 10 Mg Tab 10 Mg PO DAILY Lisinopril 20 Mg Tab 20 Mg PO BID Review of Systems Except as stated in HPI: all other systems reviewed are Neg Physical Exam Narrative GENERAL: 52yo F in mild distress. SKIN: Focused skin assessment warm/dry. HEAD: Atraumatic. Normocephalic. CARDIOVASCULAR: Regular rate and rhythm. No murmur appreciated. RESPIRATORY: No accessory muscle use. Clear to auscultation. Breath sounds equal bilaterally. GASTROINTESTINAL: Abdomen soft, +TTP LLQ. No rebound tenderness or guarding. MUSCULOSKELETAL: No obvious deformities. No clubbing. No cyanosis. No edema. NEUROLOGICAL: Awake and alert. No obvious cranial nerve deficits. Motor grossly within normal limits. Normal speech. PSYCHIATRIC: Appropriate mood and affect; insight and judgment normal. Data Data Last Documented VS Vital Signs Date Time Temp Pulse Resp B/P (MAP) Pulse Ox O2 Delivery O2 Flow Rate FiO2 05/20/17 10:31 100 16 174/79 (110) 96 Room Air 05/20/17 07:55 98.2 Orders Orders Urinalysis - C+S If Indicated (05/20/17 07:49) Complete Blood Count With Diff (05/20/17 08:09) Comprehensive Metabolic Panel (05/20/17 08:09) Lipase (05/20/17 08:09) Ct Abd/Pel W Iv Contrast(Rout) (05/20/17 08:09) Ketorolac Inj (Toradol Inj) (05/20/17 08:15) Hydralazine Inj (Apresoline Inj) (05/20/17 08:15) Iohexol 350 Inj (Omnipaque 350 Inj) (05/20/17 08:58) Amlodipine (Norvasc) (05/20/17 09:15) Lisinopril (Prinivil) (05/20/17 09:15) Lorazepam (Ativan) (05/20/17 10:00) Clonidine (Catapres) (05/20/17 10:00) Labs Laboratory Tests Test 05/20/17 07:56 05/20/17 08:10 Urine Collection Type CLEAN CATCH Urine Color YELLOW Urine Turbidity CLEAR Urine pH 5.0 Urine Specific [place] 1.025 Urine Protein TRACE mg/dL Urine Glucose (UA) NEG mg/dL Urine Ketones NEG mg/dL Urine Occult Blood TRACE Urine Nitrite NEG Urine Bilirubin NEG Urine Urobilinogen 1.0 MG/DL Urine Leukocyte Esterase NEG Urine RBC 0-3 /hpf Urine WBC 0-2 /hpf Urine Squamous Epithelial Cells 0-5 /hpf Urine Yeast (Budding) FEW Microscopic Urinalysis Comment CULT NOT INDICATED Urine Collection Time 07:56 White Blood Count 3.8 TH/MM3 Red Blood Count 5.54 MIL/MM3 Hemoglobin 15.2 GM/DL Hematocrit 45.6 % Mean Corpuscular Volume 82.3 FL Mean Corpuscular Hemoglobin 27.4 PG Mean Corpuscular Hemoglobin Concent 33.3 % Red Cell Distribution Width 13.7 % Platelet Count 74 TH/MM3 Mean Platelet Volume 7.7 FL Neutrophils (%) (Auto) 68.9 % Lymphocytes (%) (Auto) 23.9 % Monocytes (%) (Auto) 6.0 % Eosinophils (%) (Auto) 0.6 % Basophils (%) (Auto) 0.6 % Neutrophils # (Auto) 2.7 TH/MM3 Lymphocytes # (Auto) 0.9 TH/MM3 Monocytes # (Auto) 0.2 TH/MM3 Eosinophils # (Auto) 0.0 TH/MM3 Basophils # (Auto) 0.0 TH/MM3 CBC Comment AUTO DIFF Differential Comment AUTO DIFF CONFIRMED Platelet Estimate LOW Platelet Morphology Comment NORMAL Blood Urea Nitrogen 17 MG/DL Creatinine 0.65 MG/DL Random Glucose 105 MG/DL Total Protein 8.3 GM/DL Albumin 4.3 GM/DL Calcium Level 8.7 MG/DL Alkaline Phosphatase 88 U/L Aspartate Amino Transf (AST/SGOT) 14 U/L Alanine Aminotransferase (ALT/SGPT) 35 U/L Total Bilirubin 0.6 MG/DL Sodium Level 136 MEQ/L Potassium Level 4.0 MEQ/L Chloride Level 104 MEQ/L Carbon Dioxide Level 24.9 MEQ/L Anion Gap 7 MEQ/L Estimat Glomerular Filtration Rate 95 ML/MIN Lipase 101 U/L [facility] Medical Decision Making Medical Screen Exam Complete: Yes Emergency Medical Condition: Yes Differential Diagnosis Diverticulitis vs. colitis vs. gastroenteritis vs. hypertensive emergency Narrative Course 52yo F here with left lower abdominal pain that she said feels just like her diverticulitis. BP is also elevated but pt said she wants IV medication to bring it down. Labs reviewed, WBC low at 3.8 but this is her baseline. Thrombocytopenia at 74,000 which is also her baseline. CMP unremarkable. Lipase normal. UA showed WBC 0-2. CT a/p showed subtle inflammatory change along the sigmoid colon. Pt has not taken her blood pressure medications for 1 week so pt given lisinopril and amlodipine after BP was still high after hydralazine. Pt is very anxious appearing and initially said she didnt want any medication but after discussion, wants 0.5mg of ativan. Pt is not allergic but tells people she is because she does not want it. Pt reevaluated at bedside after ativan and clonidine and feels much better. BP is now 174/79. Pt has her blood pressure medications and instructed to take them daily. Abdominal pain improved. Return precautions given. Diagnosis Primary Impression: Colitis Patient Instructions: General Instructions Departure Forms: Tests/Procedures Additional Instructions: Please follow up with your primary care physician in 3-7 days. Return to the ED if symptoms worsen. Med/Other Pt SpecificInfo: Prescription(s) given Scripts Metronidazole (Metronidazole) 500 Mg Tab 500 MG PO TID for Infection for 10 Days, TAB 0 Refills Prov: Libra Moore DO 05/20/17 Ciprofloxacin (Ciprofloxacin) 500 Mg Tab 500 MG PO BID for Infection for 10 Days, #20 TAB 0 Refills Prov: Libra Moore DO 05/20/17 Disposition: 01 DISCHARGE HOME Condition: Stable Libra Moore DO May 20, 2017 08:15
[2017-05-20 08:28] LABS: AUTOMATED NEUTROPHIL # 2.7 TH/MM3 (1.8-7.7); BASOPHIL % 0.6 % (0.0-2.0); EOSINOPHIL % 0.6 % (0.0-4.0); HEMATOCRIT 45.6 % (35.0-46.0); HEMOGLOBIN 15.2 GM/DL (11.6-15.3); LYMPH % 23.9 % (9.0-44.0); LYMPHOCYTE # 0.9 TH/MM3 (1.0-4.8); MEAN CELL VOLUME 82.3 FL (80.0-100.0); MEAN CORPUSCULAR HEMOGLOBIN 27.4 PG (27.0-34.0); MEAN CORPUSCULAR HGB CONC 33.3 % (32.0-36.0); MEAN PLATELET VOLUME 7.7 FL (7.0-11.0); MONOCYTE # 0.2 TH/MM3 (0-0.9); NEUT % 68.9 % (16.0-70.0); PLATELET COUNT 74 TH/MM3 (150-450); RED BLOOD COUNT 5.54 MIL/MM3 (4.00-5.30); RED CELL DISTRIBUTION WIDTH 13.7 % (11.6-17.2); WHITE BLOOD COUNT 3.8 TH/MM3 (4.0-11.0)
[2017-05-20 08:28] LABS: BILIRUBIN, URINE NEG (NEG); BLOOD, URINE TRACE (NEG); GLUCOSE,URINE NEG (NEG); KETONE, URINE NEG (NEG); NITRITE,URINE NEG (NEG); URINE COLOR YELLOW (YELLW/STRAW); URINE LEUKOCYTE ESTERASE NEG (NEG)
[2017-05-20 08:36] LABS: RBC, URINE 0-3 /hpf (0-3); SQUAMOUS EPITHELIAL CELL URINE 0-5 /hpf (0-5); WBC, URINE 0-2 /hpf (0-5)
[2017-05-20 08:36] LABS: CHLORIDE 104 MEQ/L (98-107); SODIUM (NA) 136 MEQ/L (136-145)
[2017-05-20 08:40] LABS: ALBUMIN 4.3 GM/DL (3.4-5.0); BICARBONATE 24.9 MEQ/L (21.0-32.0); BLOOD UREA NITROGEN 17 MG/DL (7-18); CALCIUM 8.7 MG/DL (8.5-10.1); GLUCOSE,RANDOM 105 MG/DL (74-106)
[2017-05-20 08:43] LABS: ALT (GPT) 35 U/L (10-53); AST (GOT) 14 U/L (15-37); CREATININE 0.65 MG/DL (0.50-1.00); GLOMERULAR FILTRATION RATE 95 ML/MIN (>89)
[2017-05-20 08:45] LABS: TOTAL BILIRUBIN ADULT 0.6 MG/DL (0.2-1.0); TOTAL PROTEIN 8.3 GM/DL (6.4-8.2)
[2017-05-20 08:46] LABS: ALKALINE PHOSPHATASE 88 U/L (45-117)
[2017-05-20] MEDS ORDERED: IOHEXOL 350 MG/ML 10 ML VIAL (for RAD DIAG) IVCONTRAST ONE (08:58)
[2017-05-20 09:14] VITALS: BP 218/91; PULSE 89; RESP 16; O2SAT 99
[2017-05-20] MEDS ORDERED: LISINOPRIL 20 MG TAB PO ONE (09:15)
--- NOTE | 2017-05-20 09:25 | RADRPT ---
EXAM DATE/TIME: 05/20/2017 08:49 [facility] COMPARISON: CT ABDOMEN & PELVIS W CONTRAST, June 22, 2011, 7:39. CT PULMONARY ANGIOGRAM, February 18, 2017, 2:0 9. INDICATIONS : Left lower quadrant pain. IV CONTRAST: 90 cc Omnipaque 350 (iohexol) IV ORAL CONTRAST: No oral contrast ingested. RADIATION DOSE: 19.89 CTDIvol (mGy) MEDICAL HISTORY : Renal calculi. Gastroesophageal reflux disease. Chronic obstructive pulmonary disease.Hep C. Cervical cancer. Diverticulitis. SURGICAL HISTORY : Appendectomy. ENCOUNTER: Initial ACUITY: 2 days PAIN SCALE: 2/10 LOCATION: Left lower quadrant TECHNIQUE: Volumetric scanning of the abdomen and pelvis was performed. Using automated exposure control and ad justment of the mA and/or kV according to patient size, radiation dose was kept as low as reasonably achievable to obtain optimal diagnostic quality images. DICOM format image data is available electro nically for review and comparison. FINDINGS: The limited portion of the lung base visualized is clear. The appearance of the liver is within normal limits. The spleen is enlarged. The appearance of the pancreas and adrenal glands is within normal limits. There is a 2 mm nonobstruc ting stone seen in the collecting system of each kidney. The kidneys are otherwise normal in appearan ce. The abdominal aorta is normal in caliber. There are some small retroperitoneal lymph nodes along the celiac axis anita chain these are unchanged since a prior study dated 06/22/11. The abdominal aorta is small in caliber but patent throughout its course. Note is made of densely calcified, high-grade yoselyn nosis involving the iliac bifurcation. The celiac and SMA are both patent. There is no free intraperitoneal air. No free clear no fluid is seen. The abdominal wall is intact. No iliac or inguinal adenopathy is seen. The loops of small and large bowel within the pelvis demonst rate numerous diverticuli throughout the sigmoid colon. There is very subtle inflammatory change invo lving a mildly thickened loop of sigmoid colon in the left lower quadrant. This would be concerning f or mild diverticulitis. No abscess is seen. There is a small amount of free fluid within the pelvis. The visualized osseous structures demonstrate degenerative changes are otherwise intact. CONCLUSION: 1. There is mild splenomegaly. 2. There are small lymph nodes evident in some subtle soft tissue along the celiac axis. This is comp ared back to the previous study of 06/22/11 and is stable. 3. Punctate nonobstructing renal stones bilaterally. 4. The abdominal aorta is quite small in caliber measuring only 1.2 cm in transverse dimension. There is high grade densely calcified stenosis at the iliac bifurcation. 5. There is subtle inflammatory change along the sigmoid colon. There are numerous diverticuli eviden t. In the appropriate clinical setting this exam would be concerning for very subtle diverticulitis. No abscess is seen. Diaz Alcazar MD on May 20, 2017 at 9:16 Board Certified Radiologist. This report was verified electronically.
[2017-05-20] MEDS ORDERED: LORazepam 0.5 MG TAB PO ONE (10:00)
[2017-05-20] MEDS ORDERED: cloNIDine HCL 0.1 MG TAB PO ONE (10:00)
[2017-05-20 10:31] VITALS: BP 174/79; PULSE 100; RESP 16; O2SAT 96
[2017-05-20] MEDS ORDERED: CIPR500T2 PO (10:39)
[2017-05-20] MEDS ORDERED: METR1TAB76 PO (10:39)
== END 2017-05-20 10:59 | disposition home or self-care (01) ==
LOC: PHED 07:40
DX: K52.9 Noninfective gastroenteritis and colitis, unspecified (principal); I10 Essential (primary) hypertension; K21.9 Gastro-esophageal reflux disease without esophagitis; J44.9 Chronic obstructive pulmonary disease, unspecified; Z72.0 Tobacco use; Z86.79 Personal history of other diseases of the circulatory system; Z87.19 Personal history of other diseases of the digestive system; Z87.448 Personal history of other diseases of urinary system; Z86.59 Personal history of other mental and behavioral disorders; Z85.41 Personal history of malignant neoplasm of cervix uteri
CPT/HCPCS: 74177; 80053; 81001; 83690; 85025; 96374; 96375; 99285; J0360; J1885; Q9967

== ENCOUNTER 2017-05-21 06:49 | Emergency (ER) | payer OTHER ==
[~2017-05-21] VITALS: Ht 157.5 cm; Wt 86.0 kg
[~2017-05-21 06:49] MED LIST changes: +CIPR500T2 PO; -LEVO750T3 PO; +METR1TAB76 PO; -PRED10PA2 PO; -guaiFENesin ER PO
[2017-05-21 06:56] VITALS: BP 214/95; PULSE 90; RESP 16; TEMP 98.3; O2SAT 98
[2017-05-21 07:24] VITALS: BP 219/98
[2017-05-21 08:21] VITALS: BP 219/99
--- NOTE | 2017-05-21 09:32 | PD ---
HPI Chief Complaint: Hypertension Time Seen by Provider: 09:26 Travel History International Travel<30 days: No Contact w/Intl Traveler<30days: No Traveled to known affect area: No History of Present Illness HPI 52-year-old female patient with history of hypertension, anxiety attacks, recent Alexis seen yesterday for diverticulitis and was noted to have elevated blood pressure, has not been taking her blood pressure medications, here today because she states that this morning her blood pressure was fairly elevated in the 200 systolic range. She was worried that her blood pressure is high. She did take her lisinopril and her amlodipine at 6 AM this morning, and her has been in touch with her primary care doctor who had told them to double their doses of medications and to see him on Wednesday. Patient reports some headache but denies any chest pains, shortness of breath, or any other issues. She had not taking her Symbicort because she was worried that it would increase her blood pressure also. Modifying Factors: None Associated Signs & Symptoms: Elevated blood pressure Risk Factors: History of chronic hypertension, noncompliant with medication regimen PFSH Past Medical History Blood Disorders: Yes (HEP C) Anxiety: Yes Heart Rhythm Problems: No Cancer: Yes (CERVICAL) Cardiovascular Problems: Yes High Cholesterol: No Chemotherapy: No Chest Pain: No Congestive Heart Failure: No Cirrhosis: Yes COPD: Yes Diabetes: No Diminished Hearing: No Endocrine: No Gastrointestinal Disorders: Yes GERD: Yes Glaucoma: No Genitourinary: Yes Hepatitis: Yes (HEP C) Hiatal Hernia: No Hypertension: Yes Immune Disorder: No Kidney Stones: Yes Medical other: Yes (HX ESOPHAGEAL STRICTURE) Musculoskeletal: No Neurologic: No Reproductive: No Respiratory: Yes Myocardial Infarction: No Radiation Therapy: No Thyroid Disease: No Ulcer: No Tetanus Vaccination: < 5 Years Influenza Vaccination: Yes ?: Not Menopausal: Yes : 3 Para: 3 Past Surgical History Abdominal Surgery: Yes (APPENDECTOMY AGE 14) AICD: No Appendectomy: Yes (AGE 14) Arteriovenous Shunt: No Cardiac Surgery: No Cholecystectomy: No Ear Surgery: No Endocrine Surgery: No Eye Surgery: No Genitourinary Surgery: No Gynecologic Surgery: Yes (HYSTERECTOMY (AGE 23 )) Hysterectomy: Yes Insulin Pump: No Joint Replacement: No Neurologic Surgery: No Oral Surgery: Yes (TONSILECTOMY SURGERY) Pacemaker: No Thoracic Surgery: Yes Tonsillectomy: Yes Other Surgery: Yes ( LEFT LUMPECTOMY CYST 2007;LIVER BIOPSY;COLONOSCOPY WITH POYLP REMOVAL) Social History Alcohol Use: No Tobacco Use: Yes (1-2 CIGS DAILY) Substance Use: No (HISTORY HEROIN ABUSE; RECOVERING FOR 15 YEARS) Allergies-Medications (Allergen,Severity, Reaction): Coded Allergies: alprazolam (Unverified Allergy, Severe, PT STATES RECOVERING ADDICT, ) azithromycin (Unverified Allergy, Severe, Hypertension,Rash, 05/21/17) clonazepam (Unverified Allergy, Severe, PT STATES RECOVERING ADDICT, ) clorazepate dipotassium (Unverified Allergy, Severe, PT STATES RECOVERING ADDICT, 05/21/17) diazepam (Unverified Allergy, Severe, PT STATES RECOVERING ADDICT, 05/21/17 ) lorazepam (Unverified Allergy, Severe, PT STATES RECOVERING ADDICT, ) midazolam (Unverified Allergy, Severe, PT STATES RECOVERING ADDICT, ) oxazepam (Unverified Allergy, Severe, PT STATES RECOVERING ADDICT, 05/21/17 ) temazepam (Unverified Allergy, Severe, PT STATES RECOVERING ADDICT, ) Uncoded Allergies: NARCOTIC (Allergy, Intermediate, PT STATES 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, 06/01/11 ) Reported Meds & Prescriptions Reported Meds & Active Scripts Active Metronidazole 500 Mg Tab 500 Mg PO TID 10 Days Ciprofloxacin (Ciprofloxacin HCl) 500 Mg Tab 500 Mg PO BID 10 Days [Budeson-Formot 160-4.5 Mcg Inh] 60 PUFF Aero 2 Puff INH Q12HR Reported Proair Hfa 8.5 GM Inh (Albuterol Sulfate) 90 Mcg/Act Aer 2 Puff INH Q4-6H PRN 108 mcg/actuation Prilosec (Omeprazole Magnesium) 20 Mg Tab Amlodipine (Amlodipine Besylate) 10 Mg Tab 10 Mg PO DAILY Lisinopril 20 Mg Tab 20 Mg PO BID Review of Systems Except as stated in HPI: all other systems reviewed are Neg Physical Exam Narrative GENERAL: Well-developed middle-age female patient currently not in acute distress. Awake and oriented 3. She does appear mildly anxious. SKIN: Focused skin assessment warm/dry. HEAD: Atraumatic. Normocephalic. EYES: Pupils equal and round. No scleral icterus. No injection or drainage. ENT: No nasal bleeding or discharge. Mucous membranes pink and moist. NECK: Trachea midline. No JVD. Supple. CARDIOVASCULAR: Regular rate and rhythm. No murmur appreciated. RESPIRATORY: No accessory muscle use. Clear to auscultation. Breath sounds equal bilaterally. GASTROINTESTINAL: Abdomen soft, non-tender, nondistended. Hepatic and splenic margins not palpable. MUSCULOSKELETAL: No obvious deformities. No clubbing. No cyanosis. No edema. NEUROLOGICAL: Awake and alert. No obvious cranial nerve deficits. Motor grossly within normal limits. Normal speech. PSYCHIATRIC: Appropriate mood and affect; insight and judgment normal. Data Data Last Documented VS Vital Signs Date Time Temp Pulse Resp B/P (MAP) Pulse Ox O2 Delivery O2 Flow Rate FiO2 05/21/17 09:40 80 16 187/90 (122) 98 Room Air 05/21/17 06:56 98.3 Orders Orders Electrocardiogram (05/21/17 09:26) Blood Glucose (05/21/17 09:26) Ed Discharge Order (05/21/17 09:36) MDM Medical Decision Making Medical Screen Exam Complete: Yes Emergency Medical Condition: Yes Medical Record Reviewed: Yes Differential Diagnosis Hypertension: Hypertensive urgency versus chronic hypertension Narrative Course On reevaluation in the ER after initial vital signs, blood pressure is 187/90. It appears that her blood pressure medications taken this morning are working. Her physician has decided to start doubling the doses of her current medication regiment, patient is to start today. At this point, I think this is a fairly reasonable plan. Patient has recently been diagnosed with borderline diabetes and asked for her blood sugars to be taken, it was. At this point, I would refer her back to her physician for chronic hypertension and any further need of blood sugar management. She had lab work yesterday which shows a normal renal function. EKG was fairly unremarkable. The plan was discussed with her and she states understanding. Diagnosis Primary Impression: Chronic hypertension Disposition: 01 DISCHARGE HOME Condition: Stable Pat Melton MD May 21, 2017 09:32
[2017-05-21 09:40] VITALS: BP 187/90; PULSE 80; RESP 16; O2SAT 98
--- NOTE | 2017-05-21 19:29 | EKG ---
Date Performed: 05/21/2017 Time Performed: 09:33:40 PTAGE: 52 years EKG: Sinus rhythm BORDERLINE ECG PREVIOUS TRACING : 02/18/2017 01.19 DOCTOR: Paxton Valencia Interpretating Date/Time 05/21/2017 19:29:10
== END 2017-05-21 09:55 | disposition home or self-care (01) ==
LOC: PHED 06:49
DX: I10 Essential (primary) hypertension (principal); R51 Headache; R73.03 Prediabetes; R94.31 Abnormal electrocardiogram [ECG] [EKG]; K21.9 Gastro-esophageal reflux disease without esophagitis; J44.9 Chronic obstructive pulmonary disease, unspecified; Z91.14 Patient's other noncompliance with medication regimen; Z72.0 Tobacco use; Z86.79 Personal history of other diseases of the circulatory system; Z87.19 Personal history of other diseases of the digestive system; Z87.448 Personal history of other diseases of urinary system
CPT/HCPCS: 93005; 99283

== ENCOUNTER 2018-01-09 18:30 | Observation (INO) ==
[2018-01-09] MEDS ORDERED: Famotidine PF Inj 20 MG/2 ML Vial IV.PUSH ONE (19:34)
[2018-01-09] MEDS ORDERED: Metoprolol Inj 5 MG/5 ML Vial IV.PUSH ONE (19:34)
[2018-01-09] MEDS ORDERED: Metoprolol Tartrate 25 MG Tablet PO ONE (19:35)
--- NOTE | 2018-01-09 19:59 | ED ---
HPI General Chief Complaint: Arrhythmia / Palpitations Stated Complaint: sob/heart pounding Time Seen by Provider: 01/09/18 19:05 History of Present Illness HPI narrative: 52-year-old female with known history of hypertension, hyperlipidemia, diabetes, chronic objective pulmonary disease, cirrhosis, thrombocytopenia who presented to hospital because of fast heart rate. pt has palpitation , fast heart rate and epigastric like pain since this afternoon. pt has history of HTN and HEP-C now cured by Harvoni. pt reports localized pain in t area that started just before the palpitations started . pt is tachycardic at 114 EKG slight depressions in V 4 V5 pt has low platelets from Hepc ...no ASA given I do give nitro paste and lopressor given . Related Data Home Medications Medication Instructions Recorded Confirmed amlodipine 10 mg PO DAILY 01/09/18 01/09/18 atorvastatin [Lipitor] 10 mg PO DAILY 01/09/18 01/09/18 irbesartan-hydrochlorothiazide 1 tab PO DAILY 01/09/18 01/09/18 metformin 500 mg PO QPM 01/09/18 01/09/18 budesonide-formoterol [Symbicort] 2 puff INHALATION BID 01/10/18 01/10/18 Allergies Allergy/AdvReac Type Severity Reaction Status Date / Time alprazolam Allergy Severe PT STATES Verified 01/09/18 18:38 RECOVERING ADDICT azithromycin Allergy Severe Hypertensio Verified 01/09/18 18:38 n,Rash clonazepam Allergy Severe PT STATES Verified 01/09/18 18:38 RECOVERING ADDICT clorazepate dipotassium Allergy Severe PT STATES Verified 01/09/18 18:38 RECOVERING ADDICT diazepam Allergy Severe PT STATES Verified 01/09/18 18:38 RECOVERING ADDICT lorazepam Allergy Severe PT STATES Verified 01/09/18 18:38 RECOVERING ADDICT midazolam Allergy Severe PT STATES Verified 01/09/18 18:38 RECOVERING ADDICT oxazepam Allergy Severe PT STATES Verified 01/09/18 18:38 RECOVERING ADDICT temazepam Allergy Severe PT STATES Verified 01/09/18 18:38 RECOVERING ADDICT NARCOTIC Allergy Intermediate PT STATES Uncoded 01/09/18 18:37 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 Review of Systems ROS: all other systems reviewed are negative PMFSH Medical History Medical History History of COPD (Acute) History of cirrhosis (Acute) History of high cholesterol (Acute) Hx of diabetes mellitus (Acute) Hx of primary hypertension (Acute) Thrombocytopenia (Acute) Surgical History Surgical History Hx of appendectomy (Acute) Hx of hysterectomy (Acute) Hx of tonsillectomy (Acute) Family History Family History Mother Family history of throat cancer Father Family history of heart disease Social History Social History Substance History: Past History Second Hand Smoke Exposure: No Smoking Status: Former smoker Tobacco Type: Cigarettes Number of Pack-Years (if former smoker): 45 How Often Do You Have a Drink Containing Alcohol: Never Recent Travel in [facility] within the Last 8 Weeks: No Recent Out of Country Travel within the Last 8 Weeks: No Immunization History Tetanus Immunization: Unsure Exam Narrative Exam Narrative: GENERAL: non toxic in no apparent distress SKIN: Warm and dry. HEAD: Atraumatic. Normocephalic. EYES: Pupils equal and round. No scleral icterus. No injection or drainage. ENT: No nasal bleeding or discharge. Mucous membranes pink and moist. NECK: Trachea midline. No JVD. CARDIOVASCULAR: Regular rate and rhythm. tachycardia 114 RESPIRATORY: No accessory muscle use. Clear to auscultation. Breath sounds equal bilaterally. GASTROINTESTINAL: Abdomen soft, non-tender, nondistended. Hepatic and splenic margins not palpable. MUSCULOSKELETAL: Extremities without clubbing, cyanosis, or edema. No obvious deformities. NEUROLOGICAL: Awake and alert. No obvious cranial nerve deficits. Motor grossly within normal limits. Five out of 5 muscle strength in the arms and legs. Normal speech. PSYCHIATRIC: Appropriate mood and affect; insight and judgment normal. Course Initial Documented Vital Signs Pulse Rate 111 H 01/09/18 18:47 Respiratory Rate 16 01/09/18 18:47 Pulse Oximetry 99 01/09/18 18:47 Last Documented Vital Signs Temperature 97.6 F 01/10/18 11:49 Pulse Rate 69 01/10/18 11:49 Respiratory Rate 18 01/10/18 11:49 Blood Pressure 122/57 L 01/10/18 11:49 Pulse Oximetry 96 01/10/18 11:49 Medical Decision Making MDM Narrative Medical Screen Exam Complete: Yes Emergency Medical Condition: Yes Lab Data Result diagrams: 01/09/18 19:40 01/09/18 19:40 Lab Results 01/09/18 01/09/18 01/09/18 Range/Units 19:40 19:40 20:50 CBC w Diff Slide review pending WBC 5.0 (4.0-11.0) th/mm3 RBC 5.17 (4.00-5.30) mil/mm3 Hgb 15.3 (11.6-15.3) gm/dL Hct 44.9 (35.0-46.0) % MCV 86.7 (80.0-100.0) fL MCH 29.5 (27.0-34.0) pg MCHC 34.1 (32.0-36.0) % RDW 12.9 (11.6-17.2) % Plt Count 74 L (150-450) th/mm3 MPV 7.8 (7.0-11.0) fL Neut % (Auto) 70.6 H (16.0-70.0) % Lymph % (Auto) 22.8 (9.0-44.0) % Price % (Auto) 5.5 (0.0-8.0) % Eos % (Auto) 0.4 (0.0-4.0) % Baso % (Auto) 0.7 (0.0-2.0) % Neut # (Auto) 3.6 (1.8-7.7) th/mm3 Lymph # (Auto) 1.1 (1.0-4.8) th/mm3 Price # (Auto) 0.3 (0.0-0.9) th/mm3 Eos # (Auto) 0.0 (0.0-0.4) th/mm3 Baso # (Auto) 0.0 (0.0-0.2) th/mm3 WBC Differential . Diff Scan Auto diff confirmed Differential Comment . Platelet Estimate Low L (Normal) Platelet Morphology Enlarged H (Normal) RBC Morphology Normal (Normal) Sodium 141 (136-145) meq/L Potassium 3.2 L (3.5-5.1) meq/L Chloride 104 (98-107) meq/L Carbon Dioxide 27.0 (21.0-32.0) meq/L Anion Gap 10 (5-15) meq/L BUN 25 H (7-18) mg/dL Creatinine 0.76 (0.50-1.00) mg/dL Estimated GFR 79 L (>89) mL/min POC Glucose (68-110) mg/dl Random Glucose 155 H (74-106) mg/dL Calcium 9.0 (8.5-10.1) mg/dL Total Bilirubin 0.3 (0.2-1.0) mg/dL AST 13 L (15-37) U/L ALT 33 (10-53) U/L Alkaline Phosphatase 66 (45-117) U/L Total Creatine Kinase (26-192) U/L Troponin I Less than 0.02 L (0.02-0.05) ng/mL Total Protein 7.8 (6.4-8.2) g/dL Albumin 4.1 (3.4-5.0) g/dL Urine Color Yellow (Yellw/Straw) Urine Clarity Clear (Clear) Urine pH 6.0 (5.0-8.5) Ur Specific [place] 1.020 (1.002-1.035) Urine Protein Negative (Neg-Trace) mg/dL Urine Glucose (UA) Negative (Negative) mg/dL Urine Ketones Trace H (Negative) mg/dL Urine Occult Blood Negative (Negative) Urine Nitrate Negative (Negative) Urine Bilirubin Negative (Negative) Urine Urobilinogen 0.2 (Less than 2) mg/dL Ur Leukocyte Esterase Negative (Negative) Urine RBC 0-3 (0-3) /hpf Urine WBC 0-5 (0-5) /hpf Ur Squamous Epith Cells 0-5 (0-5) /hpf Ur Microscopic Review Microscopic reviewed 01/09/18 01/10/18 01/10/18 Range/Units 23:10 02:30 05:00 CBC w Diff WBC (4.0-11.0) th/mm3 RBC (4.00-5.30) mil/mm3 Hgb (11.6-15.3) gm/dL Hct (35.0-46.0) % MCV (80.0-100.0) fL MCH (27.0-34.0) pg MCHC (32.0-36.0) % RDW (11.6-17.2) % Plt Count (150-450) th/mm3 MPV (7.0-11.0) fL Neut % (Auto) (16.0-70.0) % Lymph % (Auto) (9.0-44.0) % Price % (Auto) (0.0-8.0) % Eos % (Auto) (0.0-4.0) % Baso % (Auto) (0.0-2.0) % Neut # (Auto) (1.8-7.7) th/mm3 Lymph # (Auto) (1.0-4.8) th/mm3 Price # (Auto) (0.0-0.9) th/mm3 Eos # (Auto) (0.0-0.4) th/mm3 Baso # (Auto) (0.0-0.2) th/mm3 WBC Differential Diff Scan Differential Comment Platelet Estimate (Normal) Platelet Morphology (Normal) RBC Morphology (Normal) Sodium (136-145) meq/L Potassium (3.5-5.1) meq/L Chloride (98-107) meq/L Carbon Dioxide (21.0-32.0) meq/L Anion Gap (5-15) meq/L BUN (7-18) mg/dL Creatinine (0.50-1.00) mg/dL Estimated GFR (>89) mL/min POC Glucose (68-110) mg/dl Random Glucose (74-106) mg/dL Calcium (8.5-10.1) mg/dL Total Bilirubin (0.2-1.0) mg/dL AST (15-37) U/L ALT (10-53) U/L Alkaline Phosphatase (45-117) U/L Total Creatine Kinase 53 53 (26-192) U/L Troponin I Less than 0.02 L Less than 0.02 L Less than 0.02 L (0.02-0.05) ng/mL Total Protein (6.4-8.2) g/dL Albumin (3.4-5.0) g/dL Urine Color (Yellw/Straw) Urine Clarity (Clear) Urine pH (5.0-8.5) Ur Specific [place] (1.002-1.035) Urine Protein (Neg-Trace) mg/dL Urine Glucose (UA) (Negative) mg/dL Urine Ketones (Negative) mg/dL Urine Occult Blood (Negative) Urine Nitrate (Negative) Urine Bilirubin (Negative) Urine Urobilinogen (Less than 2) mg/dL Ur Leukocyte Esterase (Negative) Urine RBC (0-3) /hpf Urine WBC (0-5) /hpf Ur Squamous Epith Cells (0-5) /hpf Ur Microscopic Review 01/10/18 Range/Units 12:15 CBC w Diff WBC (4.0-11.0) th/mm3 RBC (4.00-5.30) mil/mm3 Hgb (11.6-15.3) gm/dL Hct (35.0-46.0) % MCV (80.0-100.0) fL MCH (27.0-34.0) pg MCHC (32.0-36.0) % RDW (11.6-17.2) % Plt Count (150-450) th/mm3 MPV (7.0-11.0) fL Neut % (Auto) (16.0-70.0) % Lymph % (Auto) (9.0-44.0) % Price % (Auto) (0.0-8.0) % Eos % (Auto) (0.0-4.0) % Baso % (Auto) (0.0-2.0) % Neut # (Auto) (1.8-7.7) th/mm3 Lymph # (Auto) (1.0-4.8) th/mm3 Price # (Auto) (0.0-0.9) th/mm3 Eos # (Auto) (0.0-0.4) th/mm3 Baso # (Auto) (0.0-0.2) th/mm3 WBC Differential Diff Scan Differential Comment Platelet Estimate (Normal) Platelet Morphology (Normal) RBC Morphology (Normal) Sodium (136-145) meq/L Potassium (3.5-5.1) meq/L Chloride (98-107) meq/L Carbon Dioxide (21.0-32.0) meq/L Anion Gap (5-15) meq/L BUN (7-18) mg/dL Creatinine (0.50-1.00) mg/dL Estimated GFR (>89) mL/min POC Glucose 100 (68-110) mg/dl Random Glucose (74-106) mg/dL Calcium (8.5-10.1) mg/dL Total Bilirubin (0.2-1.0) mg/dL AST (15-37) U/L ALT (10-53) U/L Alkaline Phosphatase (45-117) U/L Total Creatine Kinase (26-192) U/L Troponin I (0.02-0.05) ng/mL Total Protein (6.4-8.2) g/dL Albumin (3.4-5.0) g/dL Urine Color (Yellw/Straw) Urine Clarity (Clear) Urine pH (5.0-8.5) Ur Specific [place] (1.002-1.035) Urine Protein (Neg-Trace) mg/dL Urine Glucose (UA) (Negative) mg/dL Urine Ketones (Negative) mg/dL Urine Occult Blood (Negative) Urine Nitrate (Negative) Urine Bilirubin (Negative) Urine Urobilinogen (Less than 2) mg/dL Ur Leukocyte Esterase (Negative) Urine RBC (0-3) /hpf Urine WBC (0-5) /hpf Ur Squamous Epith Cells (0-5) /hpf Ur Microscopic Review Imaging Data Radiologist's impression: Myocardial Perfusion Scan Nuc Med 01/10/18 00:00 CONCLUSION: 1. Negative for stress-induced ischemia 2. Gut activity does obscure a significant component of the inferior wall Discharge Plan Discharge Disposition Patient Disposition: 01 Discharge Home Discharge Condition Condition: Stable Discharge Order Discharge Orders: Discharge Order (Routine); Ordered 01/10/18 Ordered By: Lloyd Serrano Discharge Details Anticipated Discharge Date: 01/10/18 Physicians Team ED Provider: Evan Summers Primary Care Provider: Gustavo Hurt Attending Provider: Katya Silverio Status ED Status: Left Department Discharge Information Discharge Date/Time: 01/09/18 23:37
[2018-01-09 20:00] LABS: Baso % (Auto) 0.7 % (0.0-2.0); Eos % (Auto) 0.4 % (0.0-4.0); Hematocrit 44.9 % (35.0-46.0); Hemoglobin 15.3 gm/dL (11.6-15.3); Lymph # (Auto) 1.1 th/mm3 (1.0-4.8); Lymph % (Auto) 22.8 % (9.0-44.0); Mean Corpuscular HGB Conc 34.1 % (32.0-36.0); Mean Corpuscular Hemoglobin 29.5 pg (27.0-34.0); Mean Corpuscular Volume 86.7 fL (80.0-100.0); Mean Platelet Volume 7.8 fL (7.0-11.0); Mono # (Auto) 0.3 th/mm3 (0.0-0.9); Mono % (Auto) 5.5 % (0.0-8.0); Neut # (Auto) 3.6 th/mm3 (1.8-7.7); Neut % (Auto) 70.6 % (16.0-70.0); Platelet Count 74 th/mm3 (150-450); Red Blood Count 5.17 mil/mm3 (4.00-5.30); Red Cell Distribution Width 12.9 % (11.6-17.2)
[2018-01-09 20:05] LABS: Chloride 104 meq/L (98-107); Potassium 3.2 meq/L (3.5-5.1); Sodium 141 meq/L (136-145)
[2018-01-09 20:10] LABS: Albumin 4.1 g/dL (3.4-5.0)
[2018-01-09 20:11] LABS: Anion Gap 10 meq/L (5-15); Blood Urea Nitrogen 25 mg/dL (7-18); Glucose,Random 155 mg/dL (74-106)
[2018-01-09 20:14] LABS: Alanine Aminotransferase 33 U/L (10-53); Aspartate Aminotransferase 13 U/L (15-37); Glomerular Filtration Rate 79 mL/min (>89)
[2018-01-09 20:16] LABS: Total Protein 7.8 g/dL (6.4-8.2)
[2018-01-09 20:17] LABS: Alkaline Phosphatase 66 U/L (45-117)
[2018-01-09 20:24] LABS: RBC Morphology Normal (Normal)
[2018-01-09 21:05] LABS: Bilirubin,Urine Negative (Negative); Clarity,Urine Clear (Clear); Color,Urine Yellow (Yellw/Straw); Glucose,Urine (UA) Negative (Negative); Leukocyte Esterase,Urine Negative (Negative); Nitrite,Urine Negative (Negative); Urobilinogen,Urine 0.2 mg/dL (Less than 2)
[2018-01-09 21:08] LABS: RBC,Urine 0-3 /hpf (0-3); Squamous Epithelial Cell,Urine 0-5 /hpf (0-5); WBC,Urine 0-5 /hpf (0-5)
[2018-01-10 03:48] LABS: Creatine Kinase 53 U/L (26-192)
[2018-01-10 06:15] LABS: Creatine Kinase 53 U/L (26-192)
[2018-01-10] MEDS ORDERED: SYMBICORT INH SCH (09:45)
[2018-01-10] MEDS ORDERED: Dextrose 50% in Water 50 ML Vial IV.PUSH PRN (10:48)
--- NOTE | 2018-01-10 10:51 | P.HP ---
History of Present Illness Primary Care Physician: Gustavo Hurt MD Chief Complaint: Heart was beating fast History of Present Illness: 52-year-old female with known history of hypertension, hyperlipidemia, diabetes , chronic objective pulmonary disease, cirrhosis, thrombocytopenia who presented to hospital because of fast heart rate. Patient states that over the last 2 months she has been experiencing fast heart rate. She has been monitoring it with a heart rate monitor that she wears on her wrist. She states that her heart rate is been going up quite frequently. She has been to her regular medical doctor for evaluation. The patient indicates that she has normal state of health until yesterday when she noticed that her heart rate was going up and she started developing a short segment of chest pain in the middle part of her chest without any radiation to the neck, back, shoulder, arm. It lasts for couple seconds at a time and goes away. She denied any nausea, vomiting, shortness of breath, dyspnea. She states that she did have some diaphoresis. She checked her heart rate during this time and her heart rate was also elevated and she indicates that her heart rate would not come back down so she came to the emergency department for evaluation. On presentation the patient heart rate was 111. Normal sinus rhythm. She had workup done emergency department which was unremarkable. ER physician recommended that the patient be observed in the chest pain center for further evaluation and management. - Diagnosis (1) Tachycardia (2) Chest pain Review of Systems All other systems reviewed negative except as stated in HPI Constitutional: Reports excessive sweating Cardiovascular: Reports chest pain, Reports fast heart rate PMFSH - History History Provided By: Patient - Medical History Medical History: Medical History (Last Updated 01/10/18 @ 09:56 by DENISE Guy) History of COPD History of cirrhosis History of high cholesterol Hx of diabetes mellitus Hx of primary hypertension Thrombocytopenia - Surgical History Surgical History: Surgical History (Last Updated 01/10/18 @ 09:52 by DENISE Guy) Hx of appendectomy Hx of hysterectomy Hx of tonsillectomy - Family History Family History: Family History (Last Updated 01/10/18 @ 09:56 by DENISE Guy) Mother Family history of throat cancer Father Family history of heart disease - Tobacco History Second Hand Smoke Exposure: No Tobacco Use In Past 30 Days: No Smoking Status: Former smoker Tobacco Type: Cigarettes Number of Pack Years (if former smoker): 45 - Alcohol History How Often Do You Have a Drink Containing Alcohol: Never - Substance Use History Substance History: Past History - Travel History Recent Travel in the [place] Within the Last 8 Weeks: No Recent Travel Out of the Country Within the Last 8 Weeks: No - Immunization History Tetanus Immunization: Unsure Medications and Allergies Active Medications: Active Medications Amlodipine Besylate (Norvasc) 10 mg PO DAILY REPLACED BY [facility] Atorvastatin Calcium (Lipitor) 10 mg PO DAILY REPLACED BY [facility] Hydrochlorothiazide (Microzide) 12.5 mg PO DAILY REPLACED BY [facility] Losartan Potassium (Cozaar) 100 mg PO DAILY REPLACED BY [facility] Sodium Chloride (Ns Flush) 2 ml IV.FLUSH PRN PRN PRN Reason: FLUSH AFTER USING IV ACCESS Sodium Chloride (Ns Flush) 2 ml IV.FLUSH BID FAB Last Admin: 01/10/18 09:36 Dose: 2 ml Allergies Allergy/AdvReac Type Severity Reaction Status Date / Time alprazolam Allergy Severe PT STATES Verified 01/09/18 18:38 RECOVERING ADDICT azithromycin Allergy Severe Hypertensio Verified 01/09/18 18:38 n,Rash clonazepam Allergy Severe PT STATES Verified 01/09/18 18:38 RECOVERING ADDICT clorazepate dipotassium Allergy Severe PT STATES Verified 01/09/18 18:38 RECOVERING ADDICT diazepam Allergy Severe PT STATES Verified 01/09/18 18:38 RECOVERING ADDICT lorazepam Allergy Severe PT STATES Verified 01/09/18 18:38 RECOVERING ADDICT midazolam Allergy Severe PT STATES Verified 01/09/18 18:38 RECOVERING ADDICT oxazepam Allergy Severe PT STATES Verified 01/09/18 18:38 RECOVERING ADDICT temazepam Allergy Severe PT STATES Verified 01/09/18 18:38 RECOVERING ADDICT NARCOTIC Allergy Intermediate PT STATES Uncoded 01/09/18 18:37 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 Home Medications Medication Instructions Recorded Confirmed Type amlodipine 10 mg PO DAILY 01/09/18 01/09/18 History atorvastatin [Lipitor] 10 mg PO DAILY 01/09/18 01/09/18 History irbesartan-hydrochlorothiazide 1 tab PO DAILY 01/09/18 01/09/18 History metformin 500 mg PO QPM 01/09/18 01/09/18 History budesonide-formoterol [Symbicort] 2 puff INHALATION BID 01/10/18 01/10/18 History Exam Vital signs: Vital Signs 01/09/18 18:47 01/09/18 19:04 01/09/18 19:50 Temperature 98.8 F Pulse Rate 111 H 101 H 99 H Respiratory Rate 16 18 Blood Pressure 189/80 H Pulse Oximetry 99 96 96 01/09/18 21:42 01/09/18 23:00 01/09/18 23:35 Temperature Pulse Rate 71 77 Respiratory Rate 18 18 Blood Pressure 117/66 122/68 Pulse Oximetry 96 96 96 01/10/18 00:00 01/10/18 04:00 01/10/18 06:27 Temperature 98.3 F 97.4 F L Pulse Rate 82 60 Respiratory Rate 16 16 Blood Pressure 122/64 118/60 Pulse Oximetry 94 L 94 L 94 L 01/10/18 08:00 Temperature 97.7 F Pulse Rate 73 Respiratory Rate 18 Blood Pressure 122/62 Pulse Oximetry 95 Intake & Output 01/09/18 01/10/18 01/10/18 18:59 06:59 18:59 Intake Total 420 / 420 Balance 420 / 420 Weight 87.9 kg 86.4 kg Intake: Oral 420 / 420 Other: # Voids 3 Weight On Admission 86.581 kg Narrative: GENERAL: Well-developed, well-nourished, in no acute distress. alert and orientated HEENT: Head is normocephalic without any lesions or masses noted. Facial features are symmetric. Eyes: Pupils equal round reactive to light. Extraocular muscles are intact. Conjunctivae were clear. Oropharyngeal: Pharynx without any erythema edema. Tongue is midline without deviation. Buccal mucosa is moist without any masses or lesions NECK: Supple without any masses. Trachea midline no deviation. No JVD, no bruits are appreciated CARDIAC: Regular rhythm, regular rate. S1/S2 are heard. No murmurs gallops or rubs. LUNGS: Clear to auscultation bilaterally. No wheeze, rhonchi or rales. No use of accessory muscles on inspiration or expiration. ABDOMEN: Soft, nontender. Nondistended. Bowel sounds heard in all 4 quadrants. No organomegaly or masses. Negative rebound, negative guarding EXTREMITIES: No edema, pulses are equal bilaterally. No cyanosis or clubbing NEUROLOGY: Mood and affect appear appropriate. Cranial nerves II through XII grossly intact. Muscle strength 5/5 in upper and lower extremities bilaterally. Deep tendon reflexes are 2+ in upper and lower extremities bilaterally. Results - Labs CBC & Chem 7: 01/09/18 19:40 01/09/18 19:40 Labs: Laboratory Results - last 24 hr 01/09/18 01/09/18 01/09/18 19:40 19:40 20:50 CBC w Diff Slide review pending WBC 5.0 RBC 5.17 Hgb 15.3 Hct 44.9 MCV 86.7 MCH 29.5 MCHC 34.1 RDW 12.9 Plt Count 74 L MPV 7.8 Neut % (Auto) 70.6 H Lymph % (Auto) 22.8 [place] % (Auto) 5.5 Eos % (Auto) 0.4 Baso % (Auto) 0.7 Neut # (Auto) 3.6 Lymph # (Auto) 1.1 [place] # (Auto) 0.3 Eos # (Auto) 0.0 Baso # (Auto) 0.0 WBC Differential . Diff Scan Auto diff confirmed Differential Comment . Platelet Estimate Low L Platelet Morphology Enlarged H RBC Morphology Normal Sodium 141 Potassium 3.2 L Chloride 104 Carbon Dioxide 27.0 Anion Gap 10 BUN 25 H Creatinine 0.76 Estimated GFR 79 L Random Glucose 155 H Calcium 9.0 Total Bilirubin 0.3 AST 13 L ALT 33 Alkaline Phosphatase 66 Total Creatine Kinase Troponin I Less than 0.02 L Total Protein 7.8 Albumin 4.1 Urine Color Yellow Urine Clarity Clear Urine pH 6.0 Ur Specific [place] 1.020 Urine Protein Negative Urine Glucose (UA) Negative Urine Ketones Trace H Urine Occult Blood Negative Urine Nitrate Negative Urine Bilirubin Negative Urine Urobilinogen 0.2 Ur Leukocyte Esterase Negative Urine RBC 0-3 Urine WBC 0-5 Ur Squamous Epith Cells 0-5 Ur Microscopic Review Microscopic reviewed 01/09/18 01/10/18 01/10/18 23:10 02:30 05:00 CBC w Diff WBC RBC Hgb Hct MCV MCH MCHC RDW Plt Count MPV Neut % (Auto) Lymph % (Auto) [place] % (Auto) Eos % (Auto) Baso % (Auto) Neut # (Auto) Lymph # (Auto) [place] # (Auto) Eos # (Auto) Baso # (Auto) WBC Differential Diff Scan Differential Comment Platelet Estimate Platelet Morphology RBC Morphology Sodium Potassium Chloride Carbon Dioxide Anion Gap BUN Creatinine Estimated GFR Random Glucose Calcium Total Bilirubin AST ALT Alkaline Phosphatase Total Creatine Kinase 53 53 Troponin I Less than 0.02 L Less than 0.02 L Less than 0.02 L Total Protein Albumin Urine Color Urine Clarity Urine pH Ur Specific [place] Urine Protein Urine Glucose (UA) Urine Ketones Urine Occult Blood Urine Nitrate Urine Bilirubin Urine Urobilinogen Ur Leukocyte Esterase Urine RBC Urine WBC Ur Squamous Epith Cells Ur Microscopic Review Caprini VTE Risk Assessment Caprini VTE Risk Assessment: Moderate/High Risk (score >= 2) Caprini Risk Assessment Model: Point Value = 1 Point Value = 2 Point Value = 3 Point Value = 5 Age 41-60 Minor surgery BMI > 25 kg/m2 Swollen legs Varicose veins or History of unexplained or recurrent spontaneous Oral contraceptives or hormone replacement Sepsis (< 1 month) Serious lung disease, including pneumonia (< 1 month) Abnormal pulmonary function Acute myocardial infarction Congestive heart failure (< 1 month) History of inflammatory bowel disease Medical patient at bed rest Age 61-74 Arthroscopic surgery Major open surgery (> 45 min) Laparoscopic surgery (> 45 min) Malignancy Confined to bed (> 72 hours) Immobilizing plaster cast Central venous access Age >= 75 History of VTE Family history of VTE Factor V Leiden Prothrombin [id number] Lupus anticoagulant Anticardiolipin antibodies Elevated serum homocysteine Heparin-induced thrombocytopenia Other congenital or acquired thrombophilia Stroke (< 1 month) Elective arthroplasty Hip, pelvis, or leg fracture Acute spinal cord injury (< 1 month) Prophylaxis Regimen: Total Risk Factor Score Risk Level Prophylaxis Regimen 0-1 Low Early ambulation 2 Moderate Order ONE of the following: *Sequential Compression Device (SCD) *Heparin 5000 units SQ BID 3-4 Higher Order ONE of the following medications: *Heparin 5000 units SQ TID *Enoxaparin/Lovenox 40 mg SQ daily (WT < 150 kg, CrCl > 30 mL/min) *Enoxaparin/Lovenox 30 mg SQ daily (WT < 150 kg, CrCl > 10-29 mL/min) *Enoxaparin/Lovenox 30 mg SQ BID (WT < 150 kg, CrCl > 30 mL/min) AND/OR *Sequential Compression Device (SCD) 5 or more Highest Order ONE of the following medications: *Heparin 5000 units SQ TID (Preferred with Epidurals) *Enoxaparin/Lovenox 40 mg SQ daily (WT < 150 kg, CrCl > 30 mL/min) *Enoxaparin/Lovenox 30 mg SQ daily (WT < 150 kg, CrCl > 10-29 mL/min) *Enoxaparin/Lovenox 30 mg SQ BID (WT < 150 kg, CrCl > 30 mL/min) AND *Sequential Compression Device (SCD) Assessment and Plan - Assessment (1) Tachycardia Code(s): R00.0 - Tachycardia, unspecified Status: Acute (2) Chest pain Code(s): R07.9 - Chest pain, unspecified Status: Acute - Plan Chest pain with tachycardia -Patient does have increased risk factors include age, hypertension, hyperlipidemia, diabetes, history of tobacco use, family history of heart disease -Patient has been ruled out for acute coronary event with serial cardiac enzymes that are negative -Serial EKGs reviewed by myself and showed normal sinus rhythm without any changes -Myocardial perfusion study was performed and indicated no ischemia, low risk -Continue aspirin nitroglycerin as needed Diabetes -Accu-Cheks with sliding scale insulin Hypertension, hyperlipidemia, chronic obstructive pulmonary disease -Home medications were continued DVT prevention -Sequential compression devices Discharge Planning: Discharge home in stable condition Activity: Ad harley. Diet: Diabetic diet Medication per medication reconciliation Follow-up with primary medical doctor in 1 week
[2018-01-10] MEDS ORDERED: Budesonide-Formoterol 160/4.5 MCG 6 GM Inhaler INH SCH (11:00)
[2018-01-10] MEDS ORDERED: amLODIPine 10 MG Tablet PO SCH (11:00)
[2018-01-10] MEDS: Insulin NovoLOG Aspart Correctional Sugar Inj SQ SCH ×2 (12:00→18:12)
--- NOTE | 2018-01-10 12:00 | ECG ---
Date Performed: 01/10/2018 Time Performed: 02:33:59 PTAGE: 52 years EKG: Sinus rhythm NORMAL ECG Since the PREVIOUS TRACING , no significant change noted PREVIOUS TRACIN01/09/2018 23.17 DOCTOR: Mango Mao Interpretating Date/Time 01/10/2018 11:59:17
--- NOTE | 2018-01-10 12:00 | ECG ---
Date Performed: 01/10/2018 Time Performed: 05:13:32 PTAGE: 52 years EKG: Sinus rhythm NORMAL ECG Since the PREVIOUS TRACING , no significant change noted PREVIOUS TRACIN01/10/2018 02.33 DOCTOR: Mango Mao Interpretating Date/Time 01/10/2018 11:59:08
--- NOTE | 2018-01-10 12:26 | ECG ---
Date Performed: 01/09/2018 Time Performed: 18:46:43 PTAGE: 52 years EKG: SINUS TACHYCARDIA POSSIBLE INFERIOR MYOCARDIAL INFARCTION ABNORMAL RHYTHM ECG Compared to PREVIOUS TRACING rate has increased with more prominent ST depression. Can not rule out ischemia PREVIOUS TRACIN05/21/2017 09.33 DOCTOR: Mango Mao Interpretating Date/Time 01/10/2018 12:25:41
--- NOTE | 2018-01-10 12:28 | ECG ---
Date Performed: 01/09/2018 Time Performed: 23:17:56 PTAGE: 52 years EKG: Sinus rhythm NORMAL ECG Compared to PREVIOUS TRACING ST changes have normalized. PREVIOUS TRACIN01/09/2018 18.46 DOCTOR: Mango Mao Interpretating Date/Time 01/10/2018 12:27:41
[2018-01-10] MEDS ORDERED: Regadenoson Inj 0.4 MG/5 ML Syringe IV.PUSH ONE (14:36)
--- NOTE | 2018-01-10 16:39 | NM ---
EXAM DATE: 01/10/2018 4:00 PM EST AGE/SEX: 52 years / Female INDICATIONS:Angina. . Palpitations and chest pains. CLINICAL DATA: This is the patient's initial encounter. Patient reports that signs and symptoms have been present for 1 day and indicates a pain score of 2/10. MEDICAL/SURGICAL HISTORY: Hypertension. Diabetes mellitus type II. Cirrhosis. Hysterectomy. COMPARISON: No prior exams available for comparison. DOSE: 8.1 mCi Tc 99m Myoview at rest 26.8 mCi [id number] at stress 0.4 mg Lexiscan STRESS SYMPTOMS: None. EJECTION FRACTION: >70 % TECHNIQUE: The patient underwent pharmacologic stress with infusion of prescribed dose. Continuous ECG tracing was monitored during stress. Gated SPECT imaging was performed after stress and conventi onal SPECT imaging was performed at rest. The examination was performed on a SPECT/CT scanner, both attenuation and non-corrected datasets were reviewed. FINDINGS: The best perfused myocardium is the anterior lateral wall. Gut activity does obscure a significant am ount of the inferior wall. There are no fixed defects to suggest an infarction. There is no redistrib ution to suggest ischemia Ejection fraction is 70% with normal wall motion. RISK CATEGORY: Low (<1% Annual Motality Rate) CONCLUSION: 1. Negative for stress-induced ischemia 2. Gut activity does obscure a significant component of the inferior wall Electronically signed by: David Alcazar MD 01/10/2018 4:38 PM EST
[2018-01-10] MEDS ORDERED: Acetaminophen 500 MG Tablet PO PRN (16:40)
--- NOTE | 2018-01-11 07:17 | TR ---
Date Performed: 01/10/2018 Time Performed: 14:59:24 DOCTOR: Ana Harrison DRUG LIST: CLINICAL HISTORY: REASON FOR TEST: REASON FOR ENDING: OBSERVATION: CONCLUSION: Lexiscan stress test was performed under standard four minute protocol. Radionuclid e was injected one minute prior to ending the test. Non-specific ST electrocardiographic abormalities were present. Nuclear imaging and interpretation are pending. COMMENTS: Lexiscan stress test was performed under standard four minute protocol. Radionuclide was injected one minute prior to ending the test. Non-specific ST electrocardiographic abormalities w ere present. Nuclear imaging and interpretation are pending.
== END 2018-01-10 18:24 | disposition home or self-care (01) ==
LOC: PHEDA 18:30 → PHED 18:30 → PH3 23:30
PROVIDERS: ADMIT Hospitalist; ATTEND Hospitalist